=== PATIENT | female | born 1970 | race Caucasian/White ===

== ENCOUNTER 2017-08-15 09:59 | Emergency (ER) | payer OTHER ==
[~2017-08-15] VITALS: Ht 175.3 cm; Wt 113.4 kg
--- OUTSIDE RECORDS SUMMARY | ~2017-08-15 | XMS ---
Demographics + + + | Address | [address] | | | [place] [address] | + + + | Preferred Language | Unknown | + + + | Marital Status | Unknown | + + + | Orthodoxy Affiliation | Unknown | + + + | Race | Unknown | + + + | Ethnic Group | Unknown | + + + Author + + + | Author | [facility] | + + + | Organization | [facility] | + + + | Address | [address] | | | [place] [address] | + + + | Phone | | + + + Care Team Providers + + + + | Care Senior Interactive Developer Name | Role | Phone | + + + + Unavailable | Unavailable | + + + + PROBLEMS +---------+ + + +--------+ + + | Type | Condition | ICD9-CM | [id number] | Onset | Condition | SNOMED | | | | Code | Code | Dates | Status | Code | +---------+ + + +--------+ + + | Problem | Hypothyroi | | E03.9 | | Active | [id number] | | | dism | | | | | | +---------+ + + +--------+ + + | Problem | Cervicalgi | | M54.2 | | Active | 00097584 | | | a | | | | | | +---------+ + + +--------+ + + | Problem | History of | Z87.39 | | | Active | 015926857 | | | | | | | | | | | fibromyalg | | | | | | | | ia | | | | | | +---------+ + + +--------+ + + | Problem | 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 | | | Active | 945417429 | | | peroneal | | | | | | | | mononeurop | | | | | | | | athy | | | | | | +---------+ + + +--------+ + + | Problem | Anxiety | F41.8 | | | Active | 163622470 | | | associated | | | | | | | | with | | | | | | | | depression | | | | | | +---------+ + + +--------+ + + | Problem | Postural | 729.90 | | | Active | 29468904 | | | imbalance | | | | | | +---------+ + + +--------+ + + | Problem | Carpal | 354.0 | | | Active | 68535441 | | | tunnel | | | | | | | | syndrome | | | | | | +---------+ + + +--------+ + + | Problem | Impingemen | 726.2 | | | Active | 8738799933 | | | t syndrome | | | | | 9442321 | | | of both | | | | | | | | shoulders | | | | | | +---------+ + + +--------+ + + | Problem | Asthma | | J45.909 | | Active | 787700526 | +---------+ + + +--------+ + + | Problem | Alopecia | L65.9 | | | Active | 87832327 | +---------+ + + +--------+ + + | Problem | GERD | | K21.9 | | Active | 688771110 | | | (gastroeso | | | | | | | | phageal | | | | | | | | reflux | | | | | | | | disease) | | | | | | +---------+ + + +--------+ + + | Problem | Eustachian | H69.80 | | | Active | 14739649 | | | tube | | | | | | | | dysfunctio | | | | | | | | n | | | | | | +---------+ + + +--------+ + + | Problem | PTSD | | F43.10 | | Active | 34824413 | | | (post-trau | | | | | | | | matic | | | | | | | | stress | | | | | | | | disorder) | | | | | | +---------+ + + +--------+ + + | Problem | History of | Z98.890 | | | Active | 342215087 | | | Holter | | | | | | | | monitoring | | | | | | +---------+ + + +--------+ + + | Problem | H/O | Z98.890 | | | Active | 427324240 | | | cervical | | | | | | | | spine | | | | | | | | surgery | | | | | | +---------+ + + +--------+ + + | 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 | 17843754 | | | anomaly | | | | | | +---------+ + + +--------+ + + | Problem | Yuko | B37.9 | | | Active | 87054445 | | | albicans | | | | | | | | infection | | | | | | +---------+ + + +--------+ + + | Problem | Dental | S09.93XA | | | Active | 62278803 | | | injury | | | | | | +---------+ + + +--------+ + + | Problem | Displaceme | M51.27 | | | Active | 88932339 | | | nt of | | | | | | | | lumbosacra | | | | | | | | l | | | | | | | | interverte | | | | | | | | bral disc | | | | | | +---------+ + + +--------+ + + | Problem | History of | Z87.828 | | | Active | | | | multiple | | | | | | | | trauma | | | | | | +---------+ + + +--------+ + + | Problem | Sprain of | S93.419A | | | Active | 68687544 | | | calcaneofi | | | | | | | | bular | | | | | | | | ligament | | | | | | | | of ankle | | | | | | +---------+ + + +--------+ + + | Problem | Personal | | Z87.898 | | Active | 014655913 | | | history of | | | | | | | | other | | | | | | | | specified | | | | | | | | conditions | | | | | | +---------+ + + +--------+ + + | Problem | Syncope | R55 | | | Active | 209837307 | +---------+ + + +--------+ + + | Problem | Nasal | | R09.81 | | Active | 83616157 | | | congestion | | | | | | +---------+ + + +--------+ + + | Problem | Other | | J30.2 | | Active | 282463320 | | | seasonal | | | | | | | | allergic | | | | | | | | rhinitis | | | | | | +---------+ + + +--------+ + + | 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 | | | Active | 988934781 | | | athy, | | | | | | | | peripheral | | | | | | | | | | | | | | | | sensorimot | | | | | | | | or axonal | | | | | | +---------+ + + +--------+ + + | Problem | Lumbosacra | M54.17 | | | Active | 0421360 | | | l | | | | | | | | radiculopa | | | | | | | | thy due to | | | | | | | | trauma | | | | | | +---------+ + + +--------+ + + | Problem | Spondylosi | M47.816 | | | Active | 88613130 | | | s of | | | | | | | | lumbar | | | | | | | | joint | | | | | | +---------+ + + +--------+ + + | Problem | Rheumatoid | M06.079 | | | Active | 60412785 | | | arthritis | | | | | | | | involving | | | | | | | | ankle | | | | | | +---------+ + + +--------+ + + | Problem | Medication | T88.7XXA | | | Active | | | | reaction | | | | | | +---------+ + + +--------+ + + | Problem | Other | | M47.12 | | Active | 91376236 | | | spondylosi | | | | | | | | s with | | | | | | | | myelopathy | | | | | | | | , cervical | | | | | | | | region | | | | | | +---------+ + + +--------+ + + | Problem | Postural | R29.3 | | | Active | 87213589 | | | imbalance | | | | | | +---------+ + + +--------+ + + | Problem | Tear of | M75.101 | | | Active | 3800379653 | | | right | | | | | 4714652 | | | rotator | | | | | | | | cuff, | | | | | | | | unspecifie | | | | | | | | d tear | | | | | | | | extent | | | | | | +---------+ + + +--------+ + + ALLERGIES Unknown Allergies SOCIAL HISTORY No smoking Hx information available PLAN OF CARE VITAL SIGNS MEDICATIONS Unknown Medications RESULTS No Results PROCEDURES No Known procedures IMMUNIZATIONS No Known Immunizations"
--- OUTSIDE RECORDS SUMMARY | ~2017-08-15 | XMS ---
Demographics + + + | Address | [address] | | | [place] [address] | + + + | Preferred Language | Unknown | + + + | Marital Status | Unknown | + + + | Quaker Affiliation | Unknown | + + + | Race | Unknown | + + + | Ethnic Group | Unknown | + + + Author + + + | Author | [facility] | + + + | Organization | [facility] | + + + | Address | [address] | | | [place] [address] | + + + | Phone | | + + + Care Team Providers + + + + | Care Design Assistant Name | Role | Phone | + + + + Unavailable | Unavailable | + + + + PROBLEMS +---------+ + + +--------+ + + | Type | Condition | ICD9-CM | [id number] | Onset | Condition | SNOMED | | | | Code | Code | Dates | Status | Code | +---------+ + + +--------+ + + | Problem | Cervicalgi | | M54.2 | | Active | 61944810 | | | a | | | | | | +---------+ + + +--------+ + + | Problem | Hypothyroi | | E03.9 | | Active | 09131870 | | | dism | | | | | | +---------+ + + +--------+ + + | Problem | 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 | | | Active | 816488066 | | | peroneal | | | | | | | | mononeurop | | | | | | | | athy | | | | | | +---------+ + + +--------+ + + | Problem | History of | Z87.39 | | | Active | 013510553 | | | | | | | | | | | fibromyalg | | | | | | | | ia | | | | | | +---------+ + + +--------+ + + | Problem | Anxiety | F41.8 | | | Active | 015173327 | | | associated | | | | | | | | with | | | | | | | | depression | | | | | | +---------+ + + +--------+ + + | Problem | Postural | R29.3 | | | Active | 70763743 | | | imbalance | | | | | | +---------+ + + +--------+ + + | Problem | Postural | 729.90 | | | Active | 56586592 | | | imbalance | | | | | | +---------+ + + +--------+ + + | Problem | Tear of | M75.101 | | | Active | 6552325311 | | | right | | | | | 8452453 | | | rotator | | | [...] | 354.0 | | | Active | 67404241 | | | tunnel | | | [...] | Z98.890 | | | Active | 532139791 | | | Holter | | | | | | | | monitoring | | | | | | +---------+ + + +--------+ + + | Problem | Other | | M47.12 | | Active | 13688075 | | | spondylosi | | | [...] | | R09.81 | | Active | 89653271 | | | congestion | | | | | | +---------+ + + +--------+ + + | Problem | Other | | J30.2 | | Active | 943916063 | | | seasonal | | | | | | | | allergic | | | | | | | | rhinitis | | | | | | +---------+ + + +--------+ + + | Problem | GERD | | K21.9 | | Active | 437023128 | | | (gastroeso | | | | | | | | phageal | | | | | | | | reflux | | | | | | | | disease) | | | | | | +---------+ + + +--------+ + + | Problem | Asthma | | J45.909 | | Active | 673855275 | +---------+ + + +--------+ + + | Problem | Impingemen | 726.2 | | | Active | 4443391134 | | | t syndrome | | | | | 6816843 | | | of both | | | | | | | | shoulders | | | | | | +---------+ + + +--------+ + + | Problem | H/O | Z98.890 | | | Active | 687470533 | | | cervical | | | | | | | | spine | | | | | | | | surgery | | | | | | +---------+ + + +--------+ + + | 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 | 11061856 | | | anomaly | | | | | | +---------+ + + +--------+ + + | Problem | Personal | | Z87.898 | | Active | 708491047 | | | history of | | | | | | | | other | | | | | | | | specified | | | | | | | | conditions | | | | | | +---------+ + + +--------+ + + | Problem | Syncope | R55 | | | Active | 128234142 | +---------+ + + +--------+ + + | Problem | History of | Z87.828 | | | Active | | | | multiple | | | | | | | | trauma | | | | | | +---------+ + + +--------+ + + | Problem | Displaceme | M51.27 | | | Active | 16655985 | | | nt of | | [...] | | F43.10 | | Active | 87718817 | | | (post-trau | | | | | | | | matic | | | | | | | | stress | | | | | | | | disorder) | | | | | | +---------+ + + +--------+ + + | Problem | Sprain of | S93.419A | | | Active | 37584548 | | | calcaneofi | | | | | | | | bular | | | | | | | | ligament | | | | | | | | of ankle | | | | | | +---------+ + + +--------+ + + | 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 | | | Active | 483537595 | | | athy, | | | | | | | | peripheral | | | | | | | | | | | | | | | | sensorimot | | | | | | | | or axonal | | | | | | +---------+ + + +--------+ + + | Problem | Lumbosacra | M54.17 | | | Active | 9221539 | | | l | | | | | | | | radiculopa | | | | | | | | thy due to | | | | | | | | trauma | | | | | | +---------+ + + +--------+ + + | Problem | Spondylosi | M47.816 | | | Active | 73619198 | | | s of | | | | | | | | lumbar | | | | | | | | joint | | | | | | +---------+ + + +--------+ + + | Problem | Rheumatoid | M06.079 | | | Active | 85982778 | | | arthritis | | | | | | | | involving | | | | | | | | ankle | | | | | | +---------+ + + +--------+ + + ALLERGIES + + + + +--------+ | Substance | Reaction | Event Type | Date | Status | + + + + +--------+ | Tylox | anaphylaxis | Drug Allergy | Apr, | Active | + + + + +--------+ | Tramadol HCl | anaphylaxis | Drug Allergy | Apr, | Active | + + + + +--------+ | Percocet | anaphylaxis | Drug Allergy | Apr, | Active | + + + + +--------+ | OxyContin | anaphylaxis | Drug Allergy | Apr, | Active | + + + + +--------+ | Oxycodone-Aceta | anaphylaxis | Drug Allergy | Apr, | Active | | minophen | | | | | + + + + +--------+ | Morphine | anaphylaxis | Drug Allergy | Apr, | Active | | Sulfate | | | | | + + + + +--------+ | Lortab | anaphylaxis | Drug Allergy | Apr, | Active | + + + + +--------+ | Codeine | anaphylaxis | Drug Allergy | Apr, | Active | + + + + +--------+ | Hydrocodone-Brannon | anaphylaxis | Drug Allergy | Apr, | Active | | taminophen | | | | | + + + + +--------+ | Vicodin | anaphylaxis | Drug Allergy | Apr, | Active | + + + + +--------+ | Guaifenesin | Unknown | Drug Allergy | Apr, | Active | + + + + +--------+ | Darvocet-N 50 | anaphylaxis | Drug Allergy | Apr, | Active | + + + + +--------+ | Augmentin | shortness of | Drug Allergy | Apr, | Active | | | breath | | | | + + + + +--------+ SOCIAL HISTORY No smoking Hx information available PLAN OF CARE + +---------+ | Activity | Details | + +---------+ +---+ | | +---+ + + + | Follow Up | prn after specialty visits Reason:null | + + + VITAL SIGNS + + + + | Height | 69 in | 2017-04-24 | + + + + | Weight | 249.8 lbs | 2017-04-24 | + + + + | BMI | 36.88 kg/m2 | 2017-04-24 | + + + + | Temperature | 97.8 degrees Fahrenheit | 2017-04-24 | + + + + | Heart Rate | 85 /min | 2017-04-24 | + + + + | Blood pressure systolic | 123 mm Hg | 2017-04-24 | + + + + | Blood pressure diastolic | 76 mm Hg | 2017-04-24 | + + + + MEDICATIONS + + + + + + + +--------+ | Medicati | Instruct | Dosage | Frequenc | Start | End Date | Duration | Status | | on | ions | | y | Date | | | | + + + + + + + +--------+ | Metaxalo | Orally | 1 tablet | 8h | | | | Active | | ne 800 | Three | | | | | | | | MG | times a | | | | | | | | | day | | | | | | | + + + + + + + +--------+ | Duloxeti | Orally | 1 | 12h | | | | Active | | ne HCl | Twice a | capsule | | | | | | | 30 MG | day | | | | | | | + + + + + + + +--------+ | Tylenol | | 2tabs | 8h | | | | Active | | 500 mg | | | | | | | | + + + + + + + +--------+ | ibuprofe | | 1 | | | | | Active | | n 800mg | | | | | | | | + + + + + + + +--------+ | Ciproflo | Orally | 1 tab | 12h | | | | Active | | xacin | Twice a | | | | | | | | 500mg | day | | | | | | | + + + + + + + +--------+ | Methocar | Orally | 1 to 2 | 6h | | | | Active | | bamol | every 6 | tablets | | | | | | | 750 MG | hours | | | | | | | + + + + + + + +--------+ | BuPROPio | Orally | 1 tablet | | 15 Aug, | | | Active | | n HCl ER | prn | | | 2016 | | | | | (SR) | | | | | | | | | 150 MG | | | | | | | | + + + + + + + +--------+ | Levothyr | Orally | 1 tablet | 24h | | | 90 days | Active | | oxine | Once a | | | | | | | | Sodium | day | | | | | | | | 25 MCG | | | | | | | | + + + + + + + +--------+ | EpiPen | Injectio | as | | 11 Apr, | | 1 | Active | | 2-Raul | n as | directed | | 2016 | | dose(s) | | | 0.3 | directed | | | | | | | | MG/0.3ML | | | | | | | | + + + + + + + +--------+ | Ventolin | Inhalati | 1 puffs | 4h | 29 Guicho, | | 1 month | Active | | HFA 108 | on every | as | | 2016 | | | | | (90 | 4 hrs | needed | | | | | | | Base) | | | | | | | | | MCG/ACT | | | | | | | | + + + + + + + +--------+ | Ranitidi | orally | 1 tab | 12h | 20 Guicho, | | 30 | Active | | ne 150mg | twice a | | | 2016 | | | | | | day | | | | | | | + + + + + + + +--------+ | Fish Oil | | | | | | | Active | + + + + + + + +--------+ | Xopenex | Inhalati | 2 puffs | 6h | | | 30 | Active | | HFA 45 | on every | | | | | day(s) | | | MCG/ACT | 6 hrs | | | | | | | + + + + + + + +--------+ RESULTS No Results PROCEDURES + + + + + | Procedure | Date Ordered | Related Diagnosis | Body Site | + + + + + | Est Level IV | Apr 24, 2017 | | | | Extended | | | | + + + + + IMMUNIZATIONS No Known Immunizations"
--- OUTSIDE RECORDS SUMMARY | ~2017-08-15 | XMS ---
Demographics + + + | Address | [address] | | | [place] [address] | + + + | Preferred Language | Unknown | + + + | Marital Status | Unknown | + + + | Gnosticist Affiliation | Unknown | + + + | Race | Unknown | + + + | Ethnic Group | Unknown | + + + Author + + + | Author | [facility] | + + + | Organization | [facility] | + + + | Address | [address] | | | [place] [address] | + + + | Phone | | + + + Care Team Providers + + + + | Care Nursing Scheduler Name | Role | Phone | + + + + Unavailable | Unavailable | + + + + PROBLEMS +---------+ + + +--------+ + + | Type | Condition | ICD9-CM | [id number] | Onset | Condition | SNOMED | | | | Code | Code | Dates | Status | Code | +---------+ + + +--------+ + + | Problem | Cervicalgi | | M54.2 | | Active | 70845664 | | | a | | | | | | +---------+ + + +--------+ + + | Problem | Hypothyroi | | E03.9 | | Active | 18013539 | | | dism | | | | | | +---------+ + + +--------+ + + | Problem | 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 | | | Active | 239492630 | | | peroneal | | | | | | | | mononeurop | | | | | | | | athy | | | | | | +---------+ + + +--------+ + + | Problem | History of | Z87.39 | | | Active | 661179358 | | | | | | | | | | | fibromyalg | | | | | | | | ia | | | | | | +---------+ + + +--------+ + + | Problem | Anxiety | F41.8 | | | Active | 350355144 | | | associated | | | | | | | | with | | | | | | | | depression | | | | | | +---------+ + + +--------+ + + | Problem | Postural | R29.3 | | | Active | 66673525 | | | imbalance | | | | | | +---------+ + + +--------+ + + | Problem | Postural | 729.90 | | | Active | 02103939 | | | imbalance | | | | | | +---------+ + + +--------+ + + | Problem | Tear of | M75.101 | | | Active | [id number] | | | right | | | | | 2156613 | | | rotator | | | [...] | 354.0 | | | Active | 87301904 | | | tunnel | | | [...] | Z98.890 | | | Active | 923237211 | | | Holter | | | | | | | | monitoring | | | | | | +---------+ + + +--------+ + + | Problem | Other | | M47.12 | | Active | 72888588 | | | spondylosi | | | [...] | | R09.81 | | Active | 59366305 | | | congestion | | | | | | +---------+ + + +--------+ + + | Problem | Other | | J30.2 | | Active | 686005190 | | | seasonal | | | | | | | | allergic | | | | | | | | rhinitis | | | | | | +---------+ + + +--------+ + + | Problem | GERD | | K21.9 | | Active | 674433650 | | | (gastroeso | | | | | | | | phageal | | | | | | | | reflux | | | | | | | | disease) | | | | | | +---------+ + + +--------+ + + | Problem | Asthma | | J45.909 | | Active | 241016839 | +---------+ + + +--------+ + + | Problem | Impingemen | 726.2 | | | Active | 1578891364 | | | t syndrome | | | | | 2551056 | | | of both | | | | | | | | shoulders | | | | | | +---------+ + + +--------+ + + | Problem | H/O | Z98.890 | | | Active | 356996013 | | | cervical | | | | | | | | spine | | | | | | | | surgery | | | | | | +---------+ + + +--------+ + + | 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 | 51798904 | | | anomaly | | | | | | +---------+ + + +--------+ + + | Problem | Personal | | Z87.898 | | Active | 518125675 | | | history of | | | | | | | | other | | | | | | | | specified | | | | | | | | conditions | | | | | | +---------+ + + +--------+ + + | Problem | Syncope | R55 | | | Active | 938384461 | +---------+ + + +--------+ + + | Problem | History of | Z87.828 | | | Active | | | | multiple | | | | | | | | trauma | | | | | | +---------+ + + +--------+ + + | Problem | Displaceme | M51.27 | | | Active | 01983773 | | | nt of | | [...] | | F43.10 | | Active | 09412655 | | | (post-trau | | | | | | | | matic | | | | | | | | stress | | | | | | | | disorder) | | | | | | +---------+ + + +--------+ + + | Problem | Sprain of | S93.419A | | | Active | 81164705 | | | calcaneofi | | | | | | | | bular | | | | | | | | ligament | | | | | | | | of ankle | | | | | | +---------+ + + +--------+ + + | 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
--- OUTSIDE RECORDS SUMMARY | ~2017-08-15 | XMS ---
Demographics + + + | Address | [address] | | | [place] [address] | + + + | Preferred Language | Unknown | + + + | Marital Status | Unknown | + + + | Jewish Affiliation | Unknown | + + + | Race | Unknown | + + + | Ethnic Group | Unknown | + + + Author + + + | Author | [facility] | + + + | Organization | [facility] | + + + | Address | [address] | | | [place] [address] | + + + | Phone | | + + + Care Team Providers + + + + | Care Kiln Labourer Name | Role | Phone | + + + + Unavailable | Unavailable | + + + + PROBLEMS +---------+ + + +--------+ + + | Type | Condition | ICD9-CM | [id number] | Onset | Condition | SNOMED | | | | Code | Code | Dates | Status | Code | +---------+ + + +--------+ + + | Problem | Cervicalgi | | M54.2 | | Active | 15678515 | | | a | | | | | | +---------+ + + +--------+ + + | Problem | 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 | | | Active | 354041158 | | | peroneal | | | | | | | | mononeurop | | | | | | | | athy | | | | | | +---------+ + + +--------+ + + | Problem | Hypothyroi | | E03.9 | | Active | 48503162 | | | dism | | | | | | +---------+ + + +--------+ + + | Problem | History of | Z87.39 | | | Active | 332548293 | | | | | | | | | | | fibromyalg | | | | | | | | ia | | | | | | +---------+ + + +--------+ + + | Problem | Anxiety | F41.8 | | | Active | 656227808 | | | associated | | | | | | | | with | | | | | | | | depression | | | | | | +---------+ + + +--------+ + + | Problem | Postural | 729.90 | | | Active | 92032181 | | | imbalance | | | | | | +---------+ + + +--------+ + + | Problem | Carpal | 354.0 | | | Active | 93634936 | | | tunnel | | | | | | | | syndrome | | | | | | +---------+ + + +--------+ + + | Problem | Impingemen | 726.2 | | | Active | [id number] | | | t syndrome | | | | | 8753998 | | | of both | | | | | | | | shoulders | | | | | | +---------+ + + +--------+ + + | Problem | Other | | M47.12 | | Active | 43134520 | | | spondylosi | | | [...] | | J45.909 | | Active | 989337172 | +---------+ + + +--------+ + + | Problem | Alopecia | L65.9 | | | Active | 30442514 | +---------+ + + +--------+ + + | Problem | GERD | | K21.9 | | Active | 251903236 | | | (gastroeso | | | | | | | | phageal | | | | | | | | reflux | | | | | | | | disease) | | | | | | +---------+ + + +--------+ + + | Problem | Eustachian | H69.80 | | | Active | 97269196 | | | tube | | | | | | | | dysfunctio | | | | | | | | n | | | | | | +---------+ + + +--------+ + + | 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 | 51699356 | | | anomaly | | | | | | +---------+ + + +--------+ + + | Problem | History of | Z98.890 | | | Active | 808204061 | | | Holter | | | | | | | | monitoring | | | | | | +---------+ + + +--------+ + + | Problem | Yuko | B37.9 | | | Active | 15312197 | | | albicans | | | | | | | | infection | | | | | | +---------+ + + +--------+ + + | Problem | Nasal | | R09.81 | | Active | 60260264 | | | congestion | | | [...] | S93.419A | | | Active | 51779484 | | | calcaneofi | | | | | | | | bular | | | | | | | | ligament | | | | | | | | of ankle | | | | | | +---------+ + + +--------+ + + | Problem | PTSD | | F43.10 | | Active | 80407989 | | | (post-trau | | | | | | | | matic | | | | | | | | stress | | | | | | | | disorder) | | | | | | +---------+ + + +--------+ + + | Problem | Syncope | R55 | | | Active | 770037364 | +---------+ + + +--------+ + + | Problem | H/O | Z98.890 | | | Active | 784080898 | | | cervical | | | | | | | | spine | | | | | | | | surgery | | | | | | +---------+ + + +--------+ + + | Problem | Other | | J30.2 | | Active | 681140140 | | | seasonal | | | | | | | | allergic | | | | | | | | rhinitis | | | | | | +---------+ + + +--------+ + + | Problem | Personal | | Z87.898 | | Active | 527840217 | | | history of | | | | | | | | other | | | | | | | | specified | | | | | | | | conditions | | | | | | +---------+ + + +--------+ + + | Problem | Rheumatoid | M06.079 | | | Active | 82415521 | | | arthritis | | | | | | | | involving | | | | | | | | ankle | | | | | | +---------+ + + +--------+ + + | 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 | | | Active | 862874718 | | | athy, | | | | | | | | peripheral | | | | | | | | | | | | | | | | sensorimot | | | | | | | | or axonal | | | | | | +---------+ + + +--------+ + + | Problem | Displaceme | M51.27 | | | Active | 60981750 | | | nt of | | [...] | M47.816 | | | Active | 03087136 | | | s of | | | | | | | | lumbar | | | | | | | | joint | | | | | | +---------+ + + +--------+ + + | Problem | Tear of | M75.101 | | | Active | 1702250902 | | | right | | | | | 1433584 | | | rotator | | | [...] | M54.17 | | | Active | 2437901 | | | l | | | | | | | | radiculopa | | | | | | | | thy due to | | | | | | | | trauma | | | | | | +---------+ + + +--------+ + + | Problem | Postural | R29.3 | | | Active | 50825776 | | | imbalance | | | [...] + + | Follow Up | prn Reason:null | + + + VITAL SIGNS + + + + | Height | 69 in | 2017 | + + + + | Weight | 250.0 lbs | 2017 | + + + + | BMI | 36.91 kg/m2 | 2017 | + + + + | Temperature | 96.3 degrees Fahrenheit | 2017 | + + + + | Heart Rate | 99 /min | 2017 | + + + + | Blood pressure systolic | 132 mm Hg | 2017 | + + + + | Blood pressure diastolic | 73 mm Hg | 2017 | + + + + MEDICATIONS + [...] + + + + + +--------+ | Diflucan | Orally | 1 tablet | | | | 1 | Active | | 150 MG | as | | | | | dose(s) | | | | directed | | | | | [...] + + + + + +--------+ | Vitamin | | | | | | | Active | | B 12 | | | | | | | | + + + + + + + +--------+ RESULTS No Results PROCEDURES + + + + + | Procedure | Date Ordered | Related Diagnosis | Body Site | + + + + + | Est Level III | 2017 | | | | Intermediate | | | | + + + + + IMMUNIZATIONS No Known Immunizations"
--- OUTSIDE RECORDS SUMMARY | ~2017-08-15 | XMS ---
Demographics + + + | Address | [address] | | | [place] [address] | + + + | Preferred Language | Unknown | + + + | Marital Status | Unknown | + + + | Mandaeism Affiliation | Unknown | + + + | Race | Unknown | + + + | Ethnic Group | Unknown | + + + Author + + + | Author | [facility] | + + + | Organization | [facility] | + + + | Address | [address] | | | [place] [address] | + + + | Phone | | + + + Care Team Providers + + + + | Care Cnc Grinder Name | Role | Phone | + + + + Unavailable | Unavailable | + + + + PROBLEMS +---------+ + + +--------+ + + | Type | Condition | ICD9-CM | VDU65-CE | Onset | Condition | SNOMED | | | | Code | Code | Dates | Status | Code | +---------+ + + +--------+ + + | Problem | Hypothyroi | | E03.9 | | Active | 87393174 | | | dism | | | | | | +---------+ + + +--------+ + + | Problem | Cervicalgi | | M54.2 | | Active | 19733647 | | | a | | | | | | +---------+ + + +--------+ + + | Problem | 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 | | | Active | 904620865 | | | peroneal | | | | | | | | mononeurop | | | | | | | | athy | | | | | | +---------+ + + +--------+ + + | Problem | History of | Z87.39 | | | Active | 487384103 | | | | | | | | | | | fibromyalg | | | | | | | | ia | | | | | | +---------+ + + +--------+ + + | Problem | Anxiety | F41.8 | | | Active | 966822801 | | | associated | | | | | | | | with | | | | | | | | depression | | | | | | +---------+ + + +--------+ + + | Problem | Postural | 729.90 | | | Active | 23339120 | | | imbalance | | | | | | +---------+ + + +--------+ + + | Problem | Carpal | 354.0 | | | Active | 06892501 | | | tunnel | | | | | | | | syndrome | | | | | | +---------+ + + +--------+ + + | Problem | Medication | T88.7XXA | | | Active | | | | reaction | | | | | | +---------+ + + +--------+ + + | Problem | Impingemen | 726.2 | | | Active | 0871843145 | | | t syndrome | | | | | 5233248 | | | of both | | | | | | | | shoulders | | | | | | +---------+ + + +--------+ + + | Problem | Other | | M47.12 | | Active | 16333877 | | | spondylosi | | | [...] | | J45.909 | | Active | 104952976 | +---------+ + + +--------+ + + | Problem | Alopecia | L65.9 | | | Active | 11075010 | +---------+ + + +--------+ + + | Problem | History of | Z98.890 | | | Active | 610306987 | | | Holter | | | | | | | | monitoring | | | | | | +---------+ + + +--------+ + + | Problem | Eustachian | H69.80 | | | Active | 66401698 | | | tube | | | | | | | | dysfunctio | | | | | | | | n | | | | | | +---------+ + + +--------+ + + | Problem | Nasal | | R09.81 | | Active | 32600300 | | | congestion | | | | | | +---------+ + + +--------+ + + | Problem | Other | | J30.2 | | Active | 480489619 | | | seasonal | | | | | | | | allergic | | | | | | | | rhinitis | | | | | | +---------+ + + +--------+ + + | Problem | Sprain of | S93.419A | | | Active | 71030650 | | | calcaneofi | | | | | | | | bular | | | | | | | | ligament | | | | | | | | of ankle | | | | | | +---------+ + + +--------+ + + | Problem | PTSD | | F43.10 | | Active | 52633464 | | | (post-trau | | | | | | | | matic | | | | | | | | stress | | | | | | | | disorder) | | | | | | +---------+ + + +--------+ + + | Problem | GERD | | K21.9 | | Active | 681412868 | | | (gastroeso | | | | | | | | phageal | | | | | | | | reflux | | | | | | | | disease) | | | | | | +---------+ + + +--------+ + + | Problem | H/O | Z98.890 | | | Active | 209208290 | | | cervical | | | | | | | | spine | | | | | | | | surgery | | | | | | +---------+ + + +--------+ + + | 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 | 54026778 | | | anomaly | | | | | | +---------+ + + +--------+ + + | Problem | Personal | | Z87.898 | | Active | 473104521 | | | history of | | | | | | | | other | | | | | | | | specified | | | | | | | | conditions | | | | | | +---------+ + + +--------+ + + | Problem | Syncope | R55 | | | Active | 675605237 | +---------+ + + +--------+ + + | Problem | Spondylosi | M47.816 | | | Active | 13875804 | | | s of | | | | | | | | lumbar | | | | | | | | joint | | | | | | +---------+ + + +--------+ + + | Problem | Rheumatoid | M06.079 | | | Active | 24821001 | | | arthritis | | | [...] | M51.27 | | | Active | 53719320 | | | nt of | | [...] | R29.3 | | | Active | 24078323 | | | imbalance | | | | | | +---------+ + + +--------+ + + | Problem | Tear of | M75.101 | | | Active | 4847923966 | | | right | | | | | 9131003 | | | rotator | | | [...] | G60.8 | | | Active | 830407873 | | | athy, | | | | | | | | peripheral | | | | | | | | | | | | | | | | sensorimot | | | | | | | | or axonal | | | | | | +---------+ + + +--------+ + + | Problem | Lumbosacra | M54.17 | | | Active | 4885425 | | | l | | | [...] information available PLAN OF CARE VITAL SIGNS + + + + | Height | 69 in | 2017-05-01 | + + + + | Weight | 255.0 lbs | 2017-05-01 | + + + + | BMI | 37.65 kg/m2 | 2017-05-01 | + + + + | Temperature | 98.0 degrees Fahrenheit | 2017-05-01 | + + + + | Heart Rate | 79 /min | 2017-05-01 | + + + + | Blood pressure systolic | 118 mm Hg | 2017-05-01 | + + + + | Blood pressure diastolic | 76 mm Hg | 2017-05-01 | + + + + MEDICATIONS + [...] | n as | directed | | 2017 | | dose(s) | | | 0.3 [...] Inhalati | 1 puffs | 4h | Feb, | | 1 month | Active | [...] + + | Est Level III | May 01, 2017 | | | | Intermediate | | | | + + + + + IMMUNIZATIONS No Known Immunizations"
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
--- OUTSIDE RECORDS SUMMARY | ~2017-08-15 | XMS ---
Demographics + + + | Address | [address] | | | [place] [address] | + + + | Preferred Language | Unknown | + + + | Marital Status | Unknown | + + + | Mormon Affiliation | Unknown | + + + | Race | Unknown | + + + | Ethnic Group | Unknown | + + + Author + + + | Author | [facility] | + + + | Organization | [facility] | + + + | Address | [address] | | | [place] [address] | + + + | Phone | | + + + Care Team Providers + + + + | Care Outpatient Scheduler Name | Role | Phone | + + + + Unavailable | Unavailable | + + + + PROBLEMS +---------+ + + +--------+ + + | Type | Condition | ICD9-CM | [id number] | Onset | Condition | SNOMED | | | | Code | Code | Dates | Status | Code | +---------+ + + +--------+ + + | Problem | Cervicalgi | | M54.2 | | Active | [id number] | | | a | | | | | | +---------+ + + +--------+ + + | Problem | Hypothyroi | | E03.9 | | Active | 02185408 | | | dism | | | | | | +---------+ + + +--------+ + + | Problem | 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 | | | Active | 106636738 | | | peroneal | | | | | | | | mononeurop | | | | | | | | athy | | | | | | +---------+ + + +--------+ + + | Problem | History of | Z87.39 | | | Active | 265346780 | | | | | | | | | | | fibromyalg | | | | | | | | ia | | | | | | +---------+ + + +--------+ + + | Problem | Anxiety | F41.8 | | | Active | 320501274 | | | associated | | | | | | | | with | | | | | | | | depression | | | | | | +---------+ + + +--------+ + + | Problem | Postural | 729.90 | | | Active | 21202839 | | | imbalance | | | | | | +---------+ + + +--------+ + + | Problem | Pain in | | M25.532 | | Active | 45593239 | | | left wrist | | | | | | +---------+ + + +--------+ + + | Problem | Carpal | 354.0 | | | Active | 62472185 | | | tunnel | | | | | | | | syndrome | | | | | | +---------+ + + +--------+ + + | Problem | Pain in | | M25.531 | | Active | 04255259 | | | right | | | | | | | | wrist | | | | | | +---------+ + + +--------+ + + | Problem | Cervical | 720.89 | | | Active | | | | spondyliti | | | | | | | | s with | | | | | | | | radiculiti | | | | | | | | s | | | | | | +---------+ + + +--------+ + + | Problem | Weight | | R63.5 | | Active | 5735081 | | | gain | | | | | | +---------+ + + +--------+ + + | Problem | Fungal | B36.9 | | | Active | 97495293 | | | rash of | | | | | | | | torso | | | | | | +---------+ + + +--------+ + + | Problem | Postural | R29.3 | | | Active | 03490291 | | | imbalance | | | | | | +---------+ + + +--------+ + + | Problem | Otitis | H60.90 | | | Active | 7465917 | | | externa | | | | | | +---------+ + + +--------+ + + | Problem | Homeless | Z59.0 | | | Active | 02943498 | +---------+ + + +--------+ + + | Problem | GERD | | K21.9 | | Active | 676681517 | | | (gastroeso | | | | | | | | phageal | | | | | | | | reflux | | | | | | | | disease) | | | | | | +---------+ + + +--------+ + + | Problem | Asthma | | J45.909 | | Active | 743455656 | +---------+ + + +--------+ + + | Problem | Impingemen | 726.2 | | | Active | 1278674700 | | | t syndrome | | | | | 9722116 | | | of both | | | | | | | | shoulders | | | | | | +---------+ + + +--------+ + + | Problem | Encounter | | Z76.0 | | Active | | | | for | | | | | | | | medication | | | | | | | | refill | | | | | | +---------+ + + +--------+ + + | Problem | Tear of | M75.101 | | | Active | [id number] | | | right | | | | | 7492588 | | | rotator | | | [...] + + | Problem | Dental | K04.7 | | | Active | 281463773 | | | abscess | | | | | | +---------+ + + +--------+ + + | Problem | History of | Z87.828 | | | Active | | | | multiple | | | | | | | | trauma | | | | | | +---------+ + + +--------+ + + | Problem | Displaceme | M51.27 | | | Active | 51632027 | | | nt of | | [...] | | F43.10 | | Active | 39198853 | | | (post-trau | | | | | | | | matic | | | | | | | | stress | | | | | | | | disorder) | | | | | | +---------+ + + +--------+ + + | Problem | Sprain of | S93.419A | | | Active | 76173926 | | | calcaneofi | | | | | | | | bular | | | | | | | | ligament | | | | | | | | of ankle | | | | | | +---------+ + + +--------+ + + | 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 | | | Active | 910477671 | | | athy, | | | | | | | | peripheral | | | | | | | | | | | | | | | | sensorimot | | | | | | | | or axonal | | | | | | +---------+ + + +--------+ + + | Problem | Lumbosacra | M54.17 | | | Active | 8015189 | | | l | | | | | | | | radiculopa | | | | | | | | thy due to | | | | | | | | trauma | | | | | | +---------+ + + +--------+ + + | Problem | Spondylosi | M47.816 | | | Active | 97864976 | | | s of | | | | | | | | lumbar | | | | | | | | joint | | | | | | +---------+ + + +--------+ + + | Problem | Rheumatoid | M06.079 | | | Active | 00008118 | | | arthritis | | | | | | | | involving | | | | | | | | ankle | | | | | | +---------+ + + +--------+ + + ALLERGIES Unknown Allergies SOCIAL HISTORY No smoking Hx information available PLAN OF CARE VITAL SIGNS MEDICATIONS + + + + + + [...] | on every | as | | 2017 | | | | | (90 | 4 hrs | needed | | | | | | | Base) | | | | | | | | | MCG/ACT | | | | | | | | + + + + + + + +--------+ RESULTS No Results PROCEDURES No Known procedures IMMUNIZATIONS No Known Immunizations"
--- OUTSIDE RECORDS SUMMARY | ~2017-08-15 | XMS ---
Demographics + + + | Address | [address] | | | [place] [address] | + + + | Preferred Language | Unknown | + + + | Marital Status | Unknown | + + + | Protestant Affiliation | Unknown | + + + | Race | Unknown | + + + | Ethnic Group | Unknown | + + + Author + + + | Author | [facility] | + + + | Organization | [facility] | + + + | Address | [address] | | | [place] [address] | + + + | Phone | [phone] [phone] | + + + Care Team Providers + + + + | Care Toeing Stockings Name | Role | Phone | + + + + Unavailable | Unavailable | + + + + PROBLEMS +---------+ + + +--------+ + + | Type | Condition | ICD9-CM | [id number] | Onset | Condition | SNOMED | | | | Code | Code | Dates | Status | Code | +---------+ + + +--------+ + + | Problem | Hypothyroi | | E03.9 | | Active | 20577147 | | | dism | | | | | | +---------+ + + +--------+ + + | Problem | Cervicalgi | | M54.2 | | Active | 47177787 | | | a | | | | | | +---------+ + + +--------+ + + | Problem | History of | Z87.39 | | | Active | 877691118 | | | | | | | | | | | fibromyalg | | | | | | | | ia | | | | | | +---------+ + + +--------+ + + | Problem | 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 | | | Active | 282935590 | | | peroneal | | | | | | | | mononeurop | | | | | | | | athy | | | | | | +---------+ + + +--------+ + + | Problem | Postural | 729.90 | | | Active | 94202337 | | | imbalance | | | | | | +---------+ + + +--------+ + + | Problem | Carpal | 354.0 | | | Active | 13481723 | | | tunnel | | | | | | | | syndrome | | | | | | +---------+ + + +--------+ + + | Problem | Impingemen | 726.2 | | | Active | 2171693521 | | | t syndrome | | | | | 4895135 | | | of both | | | | | | | | shoulders | | | | | | +---------+ + + +--------+ + + | Problem | Asthma | | J45.909 | | Active | 753785212 | +---------+ + + +--------+ + + | Problem | GERD | | K21.9 | | Active | 108605489 | | | (gastroeso | | | | | | | | phageal | | | | | | | | reflux | | | | | | | | disease) | | | | | | +---------+ + + +--------+ + + | Problem | H/O | Z98.890 | | | Active | 008381613 | | | cervical | | | | | | | | spine | | | | | | | | surgery | | | | | | +---------+ + + +--------+ + + | Problem | PTSD | | F43.10 | | Active | 43135485 | | | (post-trau | | | | | | | | matic | | | | | | | | stress | | | | | | | | disorder) | | | | | | +---------+ + + +--------+ + + | Problem | Syncope | R55 | | | Active | 685900825 | +---------+ + + +--------+ + + | Problem | Sprain of | S93.419A | | | Active | 57715119 | | | calcaneofi | | | | | | | | bular | | | | | | | | ligament | | | | | | | | of ankle | | | | | | +---------+ + + +--------+ + + | Problem | Personal | | Z87.898 | | Active | 869533135 | | | history of | | | | | | | | other | | | | | | | | specified | | | | | | | | conditions | | | | | | +---------+ + + +--------+ + + | Problem | Dental | S09.93XA | | | Active | 18706945 | | | injury | | | | | | +---------+ + + +--------+ + + | Problem | Other | | J30.2 | | Active | 266977333 | | | seasonal | | | | | | | | allergic | | | | | | | | rhinitis | | | | | | +---------+ + + +--------+ + + | Problem | Fatigue | | R53.83 | | Active | 90692934 | +---------+ + + +--------+ + + | Problem | Hyperglyce | | R73.9 | | Active | 53897573 | | | emerald | | | | | | +---------+ + + +--------+ + + | Problem | Spondylosi | M47.816 | | | Active | 79544574 | | | s of | | | | | | | | lumbar | | | | | | | | joint | | | | | | +---------+ + + +--------+ + + | Problem | Displaceme | M51.27 | | | Active | 47331478 | | | nt of | | [...] | L81.9 | | | Active | 02172080 | | | mole | | | | | | +---------+ + + +--------+ + + | 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 | | | | | | | | III) | | | | | | +---------+ + + +--------+ + + | Problem | Hypertensi | | I10 | | Active | 52657155 | | | on | | | | | | +---------+ + + +--------+ + + | Problem | Skin | L98.9 | | | Active | 53953033 | | | lesion | | | | | | +---------+ + + +--------+ + + | Problem | Lumbosacra | M54.17 | | | Active | 7070946 | | | l | | | | | | | | radiculopa | | | | | | | | thy due to | | | | | | | | trauma | | | | | | +---------+ + + +--------+ + + | Problem | Tear of | M75.101 | | | Active | 2538455240 | | | right | | | | | 7355738 | | | rotator | | | [...] | M06.079 | | | Active | 29794937 | | | arthritis | | | | | | | | involving | | | | | | | | ankle | | | | | | +---------+ + + +--------+ + + | 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 | | | Active | 474954374 | | | athy, | | | [...] | Z98.890 | | | Active | 782596325 | | | Holter | | | | | | | | monitoring | | | | | | +---------+ + + +--------+ + + | 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 | 30900935 | | | anomaly | | | | | | +---------+ + + +--------+ + + | Problem | Other | | M47.12 | | Active | 61274147 | | | spondylosi | | | [...] | H69.80 | | | Active | 55876212 | | | tube | | | [...]
--- OUTSIDE RECORDS SUMMARY | ~2017-08-15 | XMS ---
Demographics + + + | Address | [address] | | | [place] [address] | + + + | Preferred Language | Unknown | + + + | Marital Status | Unknown | + + + | Mu-Ism Affiliation | Unknown | + + + | Race | Unknown | + + + | Ethnic Group | Unknown | + + + Author + + + | Author | [facility] | + + + | Organization | [facility] | + + + | Address | [address] | | | [place] [address] | + + + | Phone | [phone] [phone] | + + + Care Team Providers + + + + | Care Roof Truss Builder Name | Role | Phone | + + + + Unavailable | Unavailable | + + + + PROBLEMS +---------+ + + +--------+ + + | Type | Condition | ICD9-CM | [id number] | Onset | Condition | SNOMED | | | | Code | Code | Dates | Status | Code | +---------+ + + +--------+ + + | Problem | Postural | 729.90 | | | Active | 61493827 | | | imbalance | | | | | | +---------+ + + +--------+ + + | Problem | History of | Z87.39 | | | Active | 167222622 | | | | | | | | | | | fibromyalg | | | | | | | | ia | | | | | | +---------+ + + +--------+ + + | Problem | Impingemen | 726.2 | | | Active | 1489470382 | | | t syndrome | | | | | 4778501 | | | of both | | | | | | | | shoulders | | | | | | +---------+ + + +--------+ + + | Problem | Carpal | 354.0 | | | Active | 67210955 | | | tunnel | | | | | | | | syndrome | | | | | | +---------+ + + +--------+ + + | Problem | Asthma | | J45.909 | | Active | 424484365 | +---------+ + + +--------+ + + | Problem | GERD | | K21.9 | | Active | 633257745 | | | (gastroeso | | | | | | | | phageal | | | | | | | | reflux | | | | | | | | disease) | | | | | | +---------+ + + +--------+ + + | Problem | PTSD | | F43.10 | | Active | 02934303 | | | (post-trau | | | | | | | | matic | | | | | | | | stress | | | | | | | | disorder) | | | | | | +---------+ + + +--------+ + + | Problem | Sprain of | S93.419A | | | Active | 00794087 | | | calcaneofi | | | [...] | | J30.2 | | Active | 743540983 | | | seasonal | | | | | | | | allergic | | | | | | | | rhinitis | | | | | | +---------+ + + +--------+ + + | Problem | Displaceme | M51.27 | | | Active | 85840692 | | | nt of | | [...] | S09.93XA | | | Active | 49183486 | | | injury | | | | | | +---------+ + + +--------+ + + | Problem | Spondylosi | M47.816 | | | Active | 59855970 | | | s of | | | | | | | | lumbar | | | | | | | | joint | | | | | | +---------+ + + +--------+ + + | 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 | | | Active | 13684739 | | | (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 | | | | | | | | elial | | | | | | | | neoplasia | | | | | | | | III) | | | | | | +---------+ + + +--------+ + + | Problem | Skin | L98.9 | | | Active | 84424883 | | | lesion | | | | | | +---------+ + + +--------+ + + | Problem | Change in | L81.9 | | | Active | 46559443 | | | mole | | | | | | +---------+ + + +--------+ + + | Problem | Encounter | Z71.89 | | | Active | 818657618 | | | for | | | | | | | | medication | | | | | | | | review | | | | | | | | and | | | | | | | | counseling | | | | | | +---------+ + + +--------+ + + | Problem | Elevated | R68.89 | | | Active | 160323769 | | | laboratory | | | | | | | | test | | | | | | | | result | | | | | | +---------+ + + +--------+ + + | Problem | Lumbosacra | M54.17 | | | Active | 7078065 | | | l | | | | | | | | radiculopa | | | | | | | | thy due to | | | | | | | | trauma | | | | | | +---------+ + + +--------+ + + | 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 | | | Active | 685925252 | | | athy, | | | | | | | | peripheral | | | | | | | | | | | | | | | | sensorimot | | | | | | | | or axonal | | | | | | +---------+ + + +--------+ + + | Problem | Rheumatoid | M06.079 | | | Active | 39093409 | | | arthritis | | | | | | | | involving | | | | | | | | ankle | | | | | | +---------+ + + +--------+ + + | Problem | Hyperglyce | | R73.9 | | Active | 93162575 | | | emerald | | | | | | +---------+ + + +--------+ + + | Problem | Hypertensi | | I10 | | Active | 43228954 | | | on | | | | | | +---------+ + + +--------+ + + | Problem | History of | Z87.39 | | | Active | 429303353 | | | | | | | | | | | rheumatoid | | | | | | | | arthritis | | | | | | +---------+ + + +--------+ + + | Problem | Fatigue | | R53.83 | | Active | 29031154 | +---------+ + + +--------+ + + | Problem | Hypothyroi | | E03.9 | | Active | 17822452 | | | dism | | | | | | +---------+ + + +--------+ + + | Problem | Eustachian | H69.80 | | | Active | 36759590 | | | tube | | | | | | | | dysfunctio | | | | | | | | n | | | | | | +---------+ + + +--------+ + + | Problem | 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 | | | Active | 662152006 | | | peroneal | | | | | | | | mononeurop | | | | | | | | athy | | | | | | +---------+ + + +--------+ + + | Problem | History of | Z98.890 | | | Active | 613949981 | | | Holter | | | | | | | | monitoring | | | | | | +---------+ + + +--------+ + + | Problem | Tear of | M75.101 | | | Active | 8364139721 | | | right | | | | | 1709017 | | | rotator | | | [...] | | M54.2 | | Active | 56747047 | | | a | | | | | | +---------+ + + +--------+ + + | Problem | Other | | M47.12 | | Active | 83245985 | | | spondylosi | | | [...] | R55 | | | Active | 697618678 | +---------+ + + +--------+ + + | Problem | Personal | | Z87.898 | | Active | 613117438 | | | history of | | | | | | | | other | | | | | | | | specified | | | | | | | | conditions | | | | | | +---------+ + + +--------+ + + | 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 | 05679870 | | | anomaly | | | | | | +---------+ + + +--------+ + + | Problem | H/O | Z98.890 | | | Active | 144365410 | | | cervical | | | [...] She | | | | moved from [place] in 09/06 | | | | and [...]
--- OUTSIDE RECORDS SUMMARY | ~2017-08-15 | XMS ---
Demographics + + + | Address | [address] | | | [place] [address] | + + + | Preferred Language | Unknown | + + + | Marital Status | Unknown | + + + | Buddhist Affiliation | Unknown | + + + | Race | Unknown | + + + | Ethnic Group | Unknown | + + + Author + + + | Author | [facility] | + + + | Organization | [facility] | + + + | Address | [address] | | | [place] [address] | + + + | Phone | | + + + Care Team Providers + + + + | Care Detention Officer Name | Role | Phone | + + + + Unavailable | Unavailable | + + + + PROBLEMS +---------+ + + +--------+ + + | Type | Condition | ICD9-CM | GQC67-XH | Onset | Condition | SNOMED | | | | Code | Code | Dates | Status | Code | +---------+ + + +--------+ + + | Problem | Hypothyroi | | E03.9 | | Active | 68856624 | | | dism | | | | | | +---------+ + + +--------+ + + | Problem | Cervicalgi | | M54.2 | | Active | 81405979 | | | a | | | | | | +---------+ + + +--------+ + + | Problem | History of | Z87.39 | | | Active | 334110135 | | | | | | | | | | | fibromyalg | | | | | | | | ia | | | | | | +---------+ + + +--------+ + + | Problem | 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 | | | Active | 161622347 | | | peroneal | | | | | | | | mononeurop | | | | | | | | athy | | | | | | +---------+ + + +--------+ + + | Problem | Anxiety | F41.8 | | | Active | 196030396 | | | associated | | | | | | | | with | | | | | | | | depression | | | | | | +---------+ + + +--------+ + + | Problem | Postural | 729.90 | | | Active | 89727644 | | | imbalance | | | | | | +---------+ + + +--------+ + + | Problem | Carpal | 354.0 | | | Active | 96056787 | | | tunnel | | | | | | | | syndrome | | | | | | +---------+ + + +--------+ + + | Problem | Impingemen | 726.2 | | | Active | 5127078589 | | | t syndrome | | | | | 7955887 | | | of both | | | | | | | | shoulders | | | | | | +---------+ + + +--------+ + + | Problem | Asthma | | J45.909 | | Active | 489979221 | +---------+ + + +--------+ + + | Problem | Alopecia | L65.9 | | | Active | 32567118 | +---------+ + + +--------+ + + | Problem | GERD | | K21.9 | | Active | 625219779 | | | (gastroeso | | | | | | | | phageal | | | | | | | | reflux | | | | | | | | disease) | | | | | | +---------+ + + +--------+ + + | Problem | Eustachian | H69.80 | | | Active | 89290874 | | | tube | | | | | | | | dysfunctio | | | | | | | | n | | | | | | +---------+ + + +--------+ + + | Problem | PTSD | | F43.10 | | Active | 84303884 | | | (post-trau | | | | | | | | matic | | | | | | | | stress | | | | | | | | disorder) | | | | | | +---------+ + + +--------+ + + | Problem | History of | Z98.890 | | | Active | 280108629 | | | Holter | | | | | | | | monitoring | | | | | | +---------+ + + +--------+ + + | Problem | H/O | Z98.890 | | | Active | 491858298 | | | cervical | | | | | | | | spine | | | | | | | | surgery | | | | | | +---------+ + + +--------+ + + | 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 | 71326610 | | | anomaly | | | | | | +---------+ + + +--------+ + + | Problem | Yuko | B37.9 | | | Active | 80656583 | | | albicans | | | | | | | | infection | | | | | | +---------+ + + +--------+ + + | Problem | Dental | S09.93XA | | | Active | 70315121 | | | injury | | | | | | +---------+ + + +--------+ + + | Problem | Displaceme | M51.27 | | | Active | 60686099 | | | nt of | | [...] | S93.419A | | | Active | 30399850 | | | calcaneofi | | | | | | | | bular | | | | | | | | ligament | | | | | | | | of ankle | | | | | | +---------+ + + +--------+ + + | Problem | Personal | | Z87.898 | | Active | 560272390 | | | history of | | | | | | | | other | | | | | | | | specified | | | | | | | | conditions | | | | | | +---------+ + + +--------+ + + | Problem | Syncope | R55 | | | Active | 321501158 | +---------+ + + +--------+ + + | Problem | Nasal | | R09.81 | | Active | 33987264 | | | congestion | | | | | | +---------+ + + +--------+ + + | Problem | Other | | J30.2 | | Active | 898388017 | | | seasonal | | | | | | | | allergic | | | | | | | | rhinitis | | | | | | +---------+ + + +--------+ + + | 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 | | | Active | 081376078 | | | athy, | | | | | | | | peripheral | | | | | | | | | | | | | | | | sensorimot | | | | | | | | or axonal | | | | | | +---------+ + + +--------+ + + | Problem | Lumbosacra | M54.17 | | | Active | 5628945 | | | l | | | | | | | | radiculopa | | | | | | | | thy due to | | | | | | | | trauma | | | | | | +---------+ + + +--------+ + + | Problem | Spondylosi | M47.816 | | | Active | 80990567 | | | s of | | | | | | | | lumbar | | | | | | | | joint | | | | | | +---------+ + + +--------+ + + | Problem | Rheumatoid | M06.079 | | | Active | 39828895 | | | arthritis | | | [...] | | M47.12 | | Active | 12223882 | | | spondylosi | | | [...] | R29.3 | | | Active | 04196310 | | | imbalance | | | | | | +---------+ + + +--------+ + + | Problem | Tear of | M75.101 | | | Active | 7219445542 | | | right | | | | | 5009281 | | | rotator | | | [...] | + + + + +--------+ | Darvojmt-N 50 | anaphylaxis | Drug Allergy | [...]
--- OUTSIDE RECORDS SUMMARY | ~2017-08-15 | XMS ---
Demographics + + + | Address | [address] | | | [place] [address] | + + + | Preferred Language | Unknown | + + + | Marital Status | Unknown | + + + | Mosque Affiliation | Unknown | + + + | Race | Unknown | + + + | Ethnic Group | Unknown | + + + Author + + + | Author | [facility] | + + + | Organization | [facility] | + + + | Address | [address] | | | [place] [address] | + + + | Phone | | + + + Care Team Providers + + + + | Care Rn Security Name | Role | Phone | + + + + Unavailable | Unavailable | + + + + PROBLEMS +---------+ + + +--------+ + + | Type | Condition | ICD9-CM | RHS94-RD | Onset | Condition | SNOMED | | | | Code | Code | Dates | Status | Code | +---------+ + + +--------+ + + | Problem | Cervicalgi | | M54.2 | | Active | [id number] | | | a | | | | | | +---------+ + + +--------+ + + | Problem | Hypothyroi | | E03.9 | | Active | 37931739 | | | dism | | | | | | +---------+ + + +--------+ + + | Problem | 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 | | | Active | 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 | | | peroneal | | | | | | | | mononeurop | | | | | | | | athy | | | | | | +---------+ + + +--------+ + + | Problem | History of | Z87.39 | | | Active | 453005966 | | | | | | | | | | | fibromyalg | | | | | | | | ia | | | | | | +---------+ + + +--------+ + + | Problem | Anxiety | F41.8 | | | Active | 121530219 | | | associated | | | | | | | | with | | | | | | | | depression | | | | | | +---------+ + + +--------+ + + | Problem | Postural | 729.90 | | | Active | 44620173 | | | imbalance | | | | | | +---------+ + + +--------+ + + | Problem | Pain in | | M25.532 | | Active | 62687422 | | | left wrist | | | | | | +---------+ + + +--------+ + + | Problem | Carpal | 354.0 | | | Active | 20740067 | | | tunnel | | | | | | | | syndrome | | | | | | +---------+ + + +--------+ + + | Problem | Pain in | | M25.531 | | Active | 95721400 | | | right | | | [...] | | R63.5 | | Active | 6496087 | | | gain | | | | | | +---------+ + + +--------+ + + | Problem | Fungal | B36.9 | | | Active | 36293986 | | | rash of | | | | | | | | torso | | | | | | +---------+ + + +--------+ + + | Problem | Postural | R29.3 | | | Active | 27702334 | | | imbalance | | | | | | +---------+ + + +--------+ + + | Problem | Otitis | H60.90 | | | Active | 2863566 | | | externa | | | | | | +---------+ + + +--------+ + + | Problem | Homeless | Z59.0 | | | Active | 19070556 | +---------+ + + +--------+ + + | Problem | GERD | | K21.9 | | Active | 445238074 | | | (gastroeso | | | | | | | | phageal | | | | | | | | reflux | | | | | | | | disease) | | | | | | +---------+ + + +--------+ + + | Problem | Asthma | | J45.909 | | Active | 637428440 | +---------+ + + +--------+ + + | Problem | Impingemen | 726.2 | | | Active | 1071183024 | | | t syndrome | | | | | 4799543 | | | of both | | [...] | M75.101 | | | Active | 4511353737 | | | right | | | | | 9453403 | | | rotator | | | [...] | K04.7 | | | Active | 801864867 | | | abscess | | | [...] | M51.27 | | | Active | 84853967 | | | nt of | | [...] | | F43.10 | | Active | 00288441 | | | (post-trau | | | | | | | | matic | | | | | | | | stress | | | | | | | | disorder) | | | | | | +---------+ + + +--------+ + + | Problem | Sprain of | S93.419A | | | Active | 38123416 | | | calcaneofi | | | | | | | | bular | | | | | | | | ligament | | | | | | | | of ankle | | | | | | +---------+ + + +--------+ + + | 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.] Tylox | anaphylaxis | Drug Allergy | Feb, | Active | + + + + +--------+ | Tramadol HCl | anaphylaxis | Drug Allergy | Feb, | Active | + + + + +--------+ | Percocet | anaphylaxis | Drug Allergy | Feb, | Active | + + + + +--------+ | OxyContin | anaphylaxis | Drug Allergy | Feb, | Active | + + + + +--------+ | Oxycodone-Aceta | anaphylaxis | Drug Allergy | Feb, | Active | | minophen | | | | | + + + + +--------+ | Morphine | anaphylaxis | Drug Allergy | Feb, | Active | | Sulfate | | | | | + + + + +--------+ | Lortab | anaphylaxis | Drug Allergy | Feb, | Active | + + + + +--------+ | Codeine | anaphylaxis | Drug Allergy | Feb, | Active | + + + + +--------+ | Hydrocodone-Brannon | anaphylaxis | Drug Allergy | Feb, | Active | | taminophen | | | | | + + + + +--------+ | Vicodin | anaphylaxis | Drug Allergy | Feb, | Active | + + + + +--------+ | Guaifenesin | Unknown | Drug Allergy | Feb, | Active | + + + + +--------+ | Darvocet-N 50 | anaphylaxis | Drug Allergy | Feb, | Active | + + + + +--------+ | Augmentin | shortness of | Drug Allergy | Feb, | Active | | | breath | | | | + + + + +--------+ SOCIAL HISTORY No smoking Hx information available PLAN OF CARE + +---------+ | Activity | Details | + +---------+ +---+ | | +---+ + + + | Follow Up | prn Reason:null | + + + VITAL SIGNS + + + + | Height | 69 in | 2017-03-12 | + + + + | Weight | 256.0 lbs | 2017-03-12 | + + + + | BMI | 37.80 kg/m2 | 2017-03-12 | + + + + | Temperature | 97.3 degrees Fahrenheit | 2017-03-12 | + + + + | Heart Rate | 100 /min | 2017-03-12 | + + + + | Blood pressure systolic | 126 mm Hg | 2017-03-12 | + + + + | Blood pressure diastolic | 81 mm Hg | 2017-03-12 | + + + + MEDICATIONS + [...] + + + + + +--------+ | L-Methyl | Orally | 1 tablet | 24h | | | | Active | | folate | Once a | | | | | | | | 15 MG | day | | | | [...] + + + + + +--------+ | Fluticas | Nasally | 1 spray | 24h | | | | Active | | one | Once a | in each | | | | | | | Propiona | day | nostril | | | | | | | te 50 | | | | | | | | | MCG/ACT | | | | | | | | + + + + + + + +--------+ | Diphenhy | Oral | 1 cap | 6h | | | | Active | | dramine | every 6 | | | | | | | | 25mg | hours | | | | | | | + + + + + + + +--------+ | Ciproflo | Otic | 4 drops | 12h | | | 10 | Active | | xacin-De | Twice a | into | | | | day(s) | | | xamethas | day | affected | | | | | | | one | | ear | | | | | | | 0.3-0.1 | | | | | | | | | % | | | | | | | [...] + + + + + +--------+ | Predniso | Oral | 2 tabs | 24h | | | | Active | | ne 20mg | once | | | | | | | | | daily | | | | | | | [...] + + | Est Level III | March 12, 2017 | | | | Intermediate | | | | + + + + + IMMUNIZATIONS No Known Immunizations"
--- OUTSIDE RECORDS SUMMARY | ~2017-08-15 | XMS ---
Demographics + + + | Address | [address] | | | [place] [address] | + + + | Preferred Language | Unknown | + + + | Marital Status | Unknown | + + + | Uatsdin Affiliation | Unknown | + + + | Race | Unknown | + + + | Ethnic Group | Unknown | + + + Author + + + | Author | [facility] | + + + | Organization | [facility] | + + + | Address | [address] | | | [place] [address] | + + + | Phone | | + + + Care Team Providers + + + + | Care Storyboard Artist Name | Role | Phone | + + + + Unavailable | Unavailable | + + + + PROBLEMS +---------+ + + +--------+ + + | Type | Condition | ICD9-CM | WLJ45-[id number] | Onset | Condition | SNOMED | | | | Code | Code | Dates | Status | Code | +---------+ + + +--------+ + + | Problem | Hypothyroi | | E03.9 | | Active | 52708130 | | | dism | | | | | | +---------+ + + +--------+ + + | Problem | Cervicalgi | | M54.2 | | Active | 09176933 | | | a | | | | | | +---------+ + + +--------+ + + | Problem | History of | Z87.39 | | | Active | 230566924 | | | | | | | | | | | fibromyalg | | | | | | | | ia | | | | | | +---------+ + + +--------+ + + | Problem | 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 | | | Active | 188486485 | | | peroneal | | | | | | | | mononeurop | | | | | | | | athy | | | | | | +---------+ + + +--------+ + + | Problem | Postural | 729.90 | | | Active | 61803279 | | | imbalance | | | | | | +---------+ + + +--------+ + + | Problem | Carpal | 354.0 | | | Active | 43273689 | | | tunnel | | | | | | | | syndrome | | | | | | +---------+ + + +--------+ + + | Problem | Impingemen | 726.2 | | | Active | 5513727279 | | | t syndrome | | | | | 0063622 | | | of both | | | | | | | | shoulders | | | | | | +---------+ + + +--------+ + + | Problem | Asthma | | J45.909 | | Active | 172450981 | +---------+ + + +--------+ + + | Problem | GERD | | K21.9 | | Active | 097019885 | | | (gastroeso | | | | | | | | phageal | | | | | | | | reflux | | | | | | | | disease) | | | | | | +---------+ + + +--------+ + + | Problem | H/O | Z98.890 | | | Active | 669886641 | | | cervical | | | | | | | | spine | | | | | | | | surgery | | | | | | +---------+ + + +--------+ + + | Problem | PTSD | | F43.10 | | Active | 78034149 | | | (post-trau | | | | | | | | matic | | | | | | | | stress | | | | | | | | disorder) | | | | | | +---------+ + + +--------+ + + | Problem | Syncope | R55 | | | Active | 707553106 | +---------+ + + +--------+ + + | Problem | Sprain of | S93.419A | | | Active | 62961578 | | | calcaneofi | | | | | | | | bular | | | | | | | | ligament | | | | | | | | of ankle | | | | | | +---------+ + + +--------+ + + | Problem | Personal | | Z87.898 | | Active | 227336128 | | | history of | | | | | | | | other | | | | | | | | specified | | | | | | | | conditions | | | | | | +---------+ + + +--------+ + + | Problem | Dental | S09.93XA | | | Active | 53127623 | | | injury | | | | | | +---------+ + + +--------+ + + | Problem | Other | | J30.2 | | Active | 394032711 | | | seasonal | | | | | | | | allergic | | | | | | | | rhinitis | | | | | | +---------+ + + +--------+ + + | Problem | Fatigue | | R53.83 | | Active | 06706418 | +---------+ + + +--------+ + + | Problem | Hyperglyce | | R73.9 | | Active | 77478458 | | | emerald | | | | | | +---------+ + + +--------+ + + | Problem | Spondylosi | M47.816 | | | Active | 56462817 | | | s of | | | | | | | | lumbar | | | | | | | | joint | | | | | | +---------+ + + +--------+ + + | Problem | Displaceme | M51.27 | | | Active | 08302451 | | | nt of | | [...] | L81.9 | | | Active | 88252878 | | | mole | | | | | | +---------+ + + +--------+ + + | 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 | | | | | | | | III) | | | | | | +---------+ + + +--------+ + + | Problem | Hypertensi | | I10 | | Active | 80942281 | | | on | | | | | | +---------+ + + +--------+ + + | Problem | Skin | L98.9 | | | Active | 14580629 | | | lesion | | | | | | +---------+ + + +--------+ + + | Problem | Lumbosacra | M54.17 | | | Active | 7894938 | | | l | | | | | | | | radiculopa | | | | | | | | thy due to | | | | | | | | trauma | | | | | | +---------+ + + +--------+ + + | Problem | Tear of | M75.101 | | | Active | 7895686224 | | | right | | | | | 2538511 | | | rotator | | | [...] | M06.079 | | | Active | 68631974 | | | arthritis | | | | | | | | involving | | | | | | | | ankle | | | | | | +---------+ + + +--------+ + + | 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 | | | Active | 474025374 | | | athy, | | | [...] | Z98.890 | | | Active | 832501213 | | | Holter | | | | | | | | monitoring | | | | | | +---------+ + + +--------+ + + | 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 | 99399705 | | | anomaly | | | | | | +---------+ + + +--------+ + + | Problem | Other | | M47.12 | | Active | 80421208 | | | spondylosi | | | [...] | H69.80 | | | Active | 62735028 | | | tube | | | [...] Tylox | anaphylaxis | Drug Allergy | May, | Active | + + + + +--------+ | Tramadol HCl | anaphylaxis | Drug Allergy | May, | Active | + + + + +--------+ | Percocet | anaphylaxis | Drug Allergy | May, | Active | + + + + +--------+ | OxyContin | anaphylaxis | Drug Allergy | May, | Active | + + + + +--------+ | Oxycodone-Aceta | anaphylaxis | Drug Allergy | May, | Active | | minophen | | | | | + + + + +--------+ | Morphine | anaphylaxis | Drug Allergy | May, | Active | | Sulfate | | | | | + + + + +--------+ | Lortab | anaphylaxis | Drug Allergy | May, | Active | + + + + +--------+ | Codeine | anaphylaxis | Drug Allergy | May, | Active | + + + + +--------+ | Hydrocodone-Brannon | anaphylaxis | Drug Allergy | May, | Active | | taminophen | | | | | + + + + +--------+ | Vicodin | anaphylaxis | Drug Allergy | May, | Active | + + + + +--------+ | Guaifenesin | Unknown | Drug Allergy | May, | Active | + + + + +--------+ | Darvocet-N 50 | anaphylaxis | Drug Allergy | May, | Active | + + + + +--------+ | Augmentin | shortness of | Drug Allergy | 12 May, 2017 | Active | | | breath | | | | + + + + +--------+ SOCIAL HISTORY No smoking Hx information available PLAN OF CARE + +---------+ | Activity | Details | + +---------+ +---+ | | +---+ + + + | Follow Up | 1 Week, prn Reason:null | + + + | Pending Test | TSH | + + + | Pending Test | Comp. Metabolic Panel (14) | + + + | Pending Test | Lipid Panel | + + + | Pending Test | Hemoglobin A1C Panel | + + + | Pending Test | CBC | + + + | Pending Test | Anemia Panel, Comprehensive | + + + VITAL SIGNS + + + + | Height | 69 in | 2017-06-04 | + + + + | Weight | 249.4 lbs | 2017-06-04 | + + + + | BMI | 36.83 kg/m2 | 2017-06-04 | + + + + | Temperature | 96.9 degrees Fahrenheit | 2017-06-04 | + + + + | Heart Rate | 88 /min | 2017-06-04 | + + + + | Blood pressure systolic | 133 mm Hg | 2017-06-04 | + + + + | Blood pressure diastolic | 69 mm Hg | 2017-06-04 | + + + + MEDICATIONS + [...] HCl ER | prn | | | 2015 | | | | | (SR) | [...] 150mg | twice a | | | 2015 | | | | | | day [...] + + | Est Level IV | Jun 04, 2017 | | | | Extended | | | | + + + + + IMMUNIZATIONS No Known Immunizations"
--- OUTSIDE RECORDS SUMMARY | ~2017-08-15 | XMS ---
Demographics + + + | Address | [address] | | | [place] [address] | + + + | Preferred Language [...] | + + + | Organization | [facility] | + + + | Address | [address] | | | [place] [address] | + + + | Phone | | + + + Care Team Providers + + + + | Care Bookkeeping Clerks Supervisor Name | Role | Phone | + + + + Unavailable | Unavailable | + + + + PROBLEMS +---------+ + + +--------+ + + | Type | Condition | ICD9-CM | [id number] | Onset | Condition | SNOMED | | | | Code | Code | Dates | Status | Code | +---------+ + + +--------+ + + | Problem | Postural | 729.90 | | | Active | 98572226 | | | imbalance | | | | | | +---------+ + + +--------+ + + | Problem | History of | Z87.39 | | | Active | 470241847 | | | | | | | | | | | fibromyalg | | | | | | | | ia | | | | | | +---------+ + + +--------+ + + | Problem | Impingemen | 726.2 | | | Active | 7263557079 | | | t syndrome | | | | | 3896038 | | | of both | | | | | | | | shoulders | | | | | | +---------+ + + +--------+ + + | Problem | Carpal | 354.0 | | | Active | 97580493 | | | tunnel | | | | | | | | syndrome | | | | | | +---------+ + + +--------+ + + | Problem | Asthma | | J45.909 | | Active | 006824317 | +---------+ + + +--------+ + + | Problem | GERD | | K21.9 | | Active | 374517274 | | | (gastroeso | | | | | | | | phageal | | | | | | | | reflux | | | | | | | | disease) | | | | | | +---------+ + + +--------+ + + | Problem | PTSD | | F43.10 | | Active | 41944319 | | | (post-trau | | | | | | | | matic | | | | | | | | stress | | | | | | | | disorder) | | | | | | +---------+ + + +--------+ + + | Problem | Sprain of | S93.419A | | | Active | 25349829 | | | calcaneofi | | | [...] | | J30.2 | | Active | 953140371 | | | seasonal | | | | | | | | allergic | | | | | | | | rhinitis | | | | | | +---------+ + + +--------+ + + | Problem | Displaceme | M51.27 | | | Active | 18442013 | | | nt of | | [...] | S09.93XA | | | Active | 29844623 | | | injury | | | | | | +---------+ + + +--------+ + + | Problem | Spondylosi | M47.816 | | | Active | 02731140 | | | s of | | | | | | | | lumbar | | | | | | | | joint | | | | | | +---------+ + + +--------+ + + | 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 | | | Active | 78341155 | | | (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 | | | | | | | | elial | | | | | | | | neoplasia | | | | | | | | III) | | | | | | +---------+ + + +--------+ + + | Problem | Skin | L98.9 | | | Active | 65253967 | | | lesion | | | | | | +---------+ + + +--------+ + + | Problem | Change in | L81.9 | | | Active | 89573370 | | | mole | | | | | | +---------+ + + +--------+ + + | Problem | Encounter | Z71.89 | | | Active | 118717171 | | | for | | | | | | | | medication | | | | | | | | review | | | | | | | | and | | | | | | | | counseling | | | | | | +---------+ + + +--------+ + + | Problem | Elevated | R68.89 | | | Active | 492596235 | | | laboratory | | | | | | | | test | | | | | | | | result | | | | | | +---------+ + + +--------+ + + | Problem | Lumbosacra | M54.17 | | | Active | 6337759 | | | l | | | | | | | | radiculopa | | | | | | | | thy due to | | | | | | | | trauma | | | | | | +---------+ + + +--------+ + + | 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 | | | Active | 772281492 | | | athy, | | | | | | | | peripheral | | | | | | | | | | | | | | | | sensorimot | | | | | | | | or axonal | | | | | | +---------+ + + +--------+ + + | Problem | Rheumatoid | M06.079 | | | Active | 14897529 | | | arthritis | | | | | | | | involving | | | | | | | | ankle | | | | | | +---------+ + + +--------+ + + | Problem | Hyperglyce | | R73.9 | | Active | 91252152 | | | emerald | | | | | | +---------+ + + +--------+ + + | Problem | Hypertensi | | I10 | | Active | 11004706 | | | on | | | | | | +---------+ + + +--------+ + + | Problem | History of | Z87.39 | | | Active | 167398849 | | | | | | | | | | | rheumatoid | | | | | | | | arthritis | | | | | | +---------+ + + +--------+ + + | Problem | Fatigue | | R53.83 | | Active | 12420171 | +---------+ + + +--------+ + + | Problem | Hypothyroi | | E03.9 | | Active | 69742356 | | | dism | | | | | | +---------+ + + +--------+ + + | Problem | Eustachian | H69.80 | | | Active | 66892320 | | | tube | | | | | | | | dysfunctio | | | | | | | | n | | | | | | +---------+ + + +--------+ + + | Problem | 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 | | | Active | 795623914 | | | peroneal | | | | | | | | mononeurop | | | | | | | | athy | | | | | | +---------+ + + +--------+ + + | Problem | History of | Z98.890 | | | Active | 716261339 | | | Holter | | | | | | | | monitoring | | | | | | +---------+ + + +--------+ + + | Problem | Tear of | M75.101 | | | Active | 0543187854 | | | right | | | | | 5800628 | | | rotator | | | [...] | | M54.2 | | Active | 27801371 | | | a | | | | | | +---------+ + + +--------+ + + | Problem | Other | | M47.12 | | Active | 43502057 | | | spondylosi | | | [...] | R55 | | | Active | 944261288 | +---------+ + + +--------+ + + | Problem | Personal | | Z87.898 | | Active | 311600986 | | | history of | | | | | | | | other | | | | | | | | specified | | | | | | | | conditions | | | | | | +---------+ + + +--------+ + + | 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 | 80099569 | | | anomaly | | | | | | +---------+ + + +--------+ + + | Problem | H/O | Z98.890 | | | Active | 679069379 | | | cervical | | | [...] Tylox | anaphylaxis | Drug Allergy | Jun, | Active | + + + + +--------+ | Tramadol HCl | anaphylaxis | Drug Allergy | Jun, | Active | + + + + +--------+ | Percocet | anaphylaxis | Drug Allergy | Jun, | Active | + + + + +--------+ | OxyContin | anaphylaxis | Drug Allergy | Jun, | Active | + + + + +--------+ | Oxycodone-Aceta | anaphylaxis | Drug Allergy | Jun, | Active | | minophen | | | | | + + + + +--------+ | Morphine | anaphylaxis | Drug Allergy | Jun, | Active | | Sulfate | | | | | + + + + +--------+ | Lortab | anaphylaxis | Drug Allergy | Jun, | Active | + + + + +--------+ | Codeine | anaphylaxis | Drug Allergy | Jun, | Active | + + + + +--------+ | Hydrocodone-Brannon | anaphylaxis | Drug Allergy | Jun, | Active | | taminophen | | | | | + + + + +--------+ | Vicodin | anaphylaxis | Drug Allergy | Jun, | Active | + + + + +--------+ | Guaifenesin | Unknown | Drug Allergy | Jun, | Active | + + + + +--------+ | Darvocet-N 50 | anaphylaxis | Drug Allergy | Jun, | Active | + + + + +--------+ | Augmentin | shortness of | Drug Allergy | Jun, | Active | | | breath | | | | + + + + +--------+ SOCIAL HISTORY Never Assessed PLAN OF CARE + +---------+ | Activity | Details | + +---------+ +---+ | | +---+ + + + | Follow Up | prn Reason:null | + + + VITAL SIGNS + + + + | Height | 69 in | 2017-06-25 | + + + + | Weight | 238.0 lbs | 2017-06-25 | + + + + | BMI | 35.14 kg/m2 | 2017-06-25 | + + + + | Temperature | 97.8 degrees Fahrenheit | 2017-06-25 | + + + + | Heart Rate | 78 /min | 2017-06-25 | + + + + | Blood pressure systolic | 101 mm Hg | 2017-06-25 | + + + + | Blood pressure diastolic | 65 mm Hg | 2017-06-25 | + + + + MEDICATIONS Unknown Medications RESULTS No Results PROCEDURES [...] She | | | | moved from [place] in 09/06 | | | | and [...]
--- OUTSIDE RECORDS SUMMARY | ~2017-08-15 | XMS ---
Demographics + + + | Address | [address] | | | [place] [address] | + + + | Preferred Language | Unknown | + + + | Marital Status | Unknown | + + + | Holiness Affiliation | Unknown | + + + | Race | Unknown | + + + | Ethnic Group | Unknown | + + + Author + + + | Author | [facility] | + + + | Organization | [facility] | + + + | Address | [address] | | | [place] [address] | + + + | Phone | | + + + Care Team Providers + + + + | Care Security Incident Response Specialist Name | Role | Phone | + + + + Unavailable | Unavailable | + + + + PROBLEMS +---------+ + + +--------+ + + | Type | Condition | ICD9-CM | [id number]-VP | Onset | Condition | SNOMED | | | | Code | Code | Dates | Status | Code | +---------+ + + +--------+ + + | Problem | Displaceme | M51.27 | | | Active | 31483982 | | | nt of | | [...] | M06.079 | | | Active | 79652583 | | | arthritis | | | | | | | | involving | | | | | | | | ankle | | | | | | +---------+ + + +--------+ + + | Problem | Spondylosi | M47.816 | | | Active | 14157705 | | | s of | | | | | | | | lumbar | | | | | | | | joint | | | | | | +---------+ + + +--------+ + + | Problem | Other | | M47.12 | | Active | 06937711 | | | spondylosi | | | [...] | G57.32 | | | Active | 129353013 | | | peroneal | | | [...] | | E03.9 | | Active | 38851665 | | | dism | | | | | | +---------+ + + +--------+ + + | Problem | Cervicalgi | | M54.2 | | Active | 88849866 | | | a | | | | | | +---------+ + + +--------+ + + | Problem | Lumbosacra | M54.17 | | | Active | 0660053 | | | l | | | | | | | | radiculopa | | | | | | | | thy due to | | | | | | | | trauma | | | | | | +---------+ + + +--------+ + + | 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 | | | Active | 819641177 | | | athy, | | | [...] | M75.101 | | | Active | 5865730427 | | | right | | | | | 6094832 | | | rotator | | | [...] | R29.3 | | | Active | 81225496 | | | imbalance | | | | | | +---------+ + + +--------+ + + | Problem | Postural | 729.90 | | | Active | 90058709 | | | imbalance | | | | | | +---------+ + + +--------+ + + | Problem | Carpal | 354.0 | | | Active | 50936056 | | | tunnel | | | | | | | | syndrome | | | | | | +---------+ + + +--------+ + + | Problem | History of | Z87.39 | | | Active | 545027544 | | | | | | | | | | | fibromyalg | | | | | | | | ia | | | | | | +---------+ + + +--------+ + + | Problem | Anxiety | F41.8 | | | Active | 091614033 | | | associated | | | | | | | | with | | | | | | | | depression | | | | | | +---------+ + + +--------+ + + | Problem | GERD | | K21.9 | | Active | 796884073 | | | (gastroeso | | | | | | | | phageal | | | | | | | | reflux | | | | | | | | disease) | | | | | | +---------+ + + +--------+ + + | Problem | PTSD | | F43.10 | | Active | 66077994 | | | (post-trau | | | | | | | | matic | | | | | | | | stress | | | | | | | | disorder) | | | | | | +---------+ + + +--------+ + + | Problem | Impingemen | 726.2 | | | Active | 9723300870 | | | t syndrome | | | | | 1283758 | | | of both | | | | | | | | shoulders | | | | | | +---------+ + + +--------+ + + | Problem | Sprain of | S93.419A | | | Active | 16347889 | | | calcaneofi | | | | | | | | bular | | | | | | | | ligament | | | | | | | | of ankle | | | | | | +---------+ + + +--------+ + + | Problem | Asthma | | J45.909 | | Active | 193552312 | +---------+ + + +--------+ + + [...]
--- OUTSIDE RECORDS SUMMARY | ~2017-08-15 | XMS ---
Demographics + + + | Address | [address] | | | [place] [address] | + + + | Preferred Language | Unknown | + + + | Marital Status | Unknown | + + + | Bahai Affiliation | Unknown | + + + | Race | Unknown | + + + | Ethnic Group | Unknown | + + + Author + + + | Author | [facility] | + + + | Organization | [facility] | + + + | Address | [address] | | | [place] [address] | + + + | Phone | | + + + Care Team Providers + + + + | Care Project Development Coordinator Name | Role | Phone | + + + + Unavailable | Unavailable | + + + + PROBLEMS +---------+ + + +--------+ + + | Type | Condition | ICD9-CM | WHC82-KU | Onset | Condition | SNOMED | | | | Code | Code | Dates | Status | Code | +---------+ + + +--------+ + + | Problem | Postural | 729.90 | | | Active | 92278782 | | | imbalance | | | | | | +---------+ + + +--------+ + + | Problem | History of | Z87.39 | | | Active | 110090298 | | | | | | | | | | | fibromyalg | | | | | | | | ia | | | | | | +---------+ + + +--------+ + + | Problem | Impingemen | 726.2 | | | Active | 2260309641 | | | t syndrome | | | | | 4948882 | | | of both | | | | | | | | shoulders | | | | | | +---------+ + + +--------+ + + | Problem | Carpal | 354.0 | | | Active | 69378738 | | | tunnel | | | | | | | | syndrome | | | | | | +---------+ + + +--------+ + + | Problem | Asthma | | J45.909 | | Active | 141836374 | +---------+ + + +--------+ + + | Problem | GERD | | K21.9 | | Active | 517211170 | | | (gastroeso | | | | | | | | phageal | | | | | | | | reflux | | | | | | | | disease) | | | | | | +---------+ + + +--------+ + + | Problem | PTSD | | F43.10 | | Active | 05652974 | | | (post-trau | | | | | | | | matic | | | | | | | | stress | | | | | | | | disorder) | | | | | | +---------+ + + +--------+ + + | Problem | Sprain of | S93.419A | | | Active | 17869476 | | | calcaneofi | | | [...] | | J30.2 | | Active | 850702852 | | | seasonal | | | | | | | | allergic | | | | | | | | rhinitis | | | | | | +---------+ + + +--------+ + + | Problem | Displaceme | M51.27 | | | Active | 88802680 | | | nt of | | [...] | S09.93XA | | | Active | 47924957 | | | injury | | | | | | +---------+ + + +--------+ + + | Problem | Spondylosi | M47.816 | | | Active | 18451092 | | | s of | | | | | | | | lumbar | | | | | | | | joint | | | | | | +---------+ + + +--------+ + + | 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 | | | | | | | | III) | | | | | | +---------+ + + +--------+ + + | Problem | Skin | L98.9 | | | Active | 89839841 | | | lesion | | | | | | +---------+ + + +--------+ + + | Problem | Change in | L81.9 | | | Active | 51234241 | | | mole | | | | | | +---------+ + + +--------+ + + | Problem | Encounter | Z71.89 | | | Active | 427512592 | | | for | | | | | | | | medication | | | | | | | | review | | | | | | | | and | | | | | | | | counseling | | | | | | +---------+ + + +--------+ + + | Problem | Elevated | R68.89 | | | Active | 106930532 | | | laboratory | | | | | | | | test | | | | | | | | result | | | | | | +---------+ + + +--------+ + + | Problem | Lumbosacra | M54.17 | | | Active | 1364030 | | | l | | | | | | | | radiculopa | | | | | | | | thy due to | | | | | | | | trauma | | | | | | +---------+ + + +--------+ + + | 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 | | | Active | 492272571 | | | athy, | | | | | | | | peripheral | | | | | | | | | | | | | | | | sensorimot | | | | | | | | or axonal | | | | | | +---------+ + + +--------+ + + | Problem | Rheumatoid | M06.079 | | | Active | 54445581 | | | arthritis | | | | | | | | involving | | | | | | | | ankle | | | | | | +---------+ + + +--------+ + + | Problem | Hyperglyce | | R73.9 | | Active | 69285125 | | | emerald | | | | | | +---------+ + + +--------+ + + | Problem | Hypertensi | | I10 | | Active | 70751829 | | | on | | | | | | +---------+ + + +--------+ + + | Problem | History of | Z87.39 | | | Active | 695566205 | | | | | | | | | | | rheumatoid | | | | | | | | arthritis | | | | | | +---------+ + + +--------+ + + | Problem | Fatigue | | R53.83 | | Active | 80331458 | +---------+ + + +--------+ + + | Problem | Hypothyroi | | E03.9 | | Active | 70222445 | | | dism | | | | | | +---------+ + + +--------+ + + | Problem | Eustachian | H69.80 | | | Active | 86657632 | | | tube | | | | | | | | dysfunctio | | | | | | | | n | | | | | | +---------+ + + +--------+ + + | Problem | 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 | | | Active | 087470027 | | | peroneal | | | | | | | | mononeurop | | | | | | | | athy | | | | | | +---------+ + + +--------+ + + | Problem | History of | Z98.890 | | | Active | 364794483 | | | Holter | | | | | | | | monitoring | | | | | | +---------+ + + +--------+ + + | Problem | Tear of | M75.101 | | | Active | 3328199639 | | | right | | | | | 8249427 | | | rotator | | | [...] | | M54.2 | | Active | 94917091 | | | a | | | | | | +---------+ + + +--------+ + + | Problem | Other | | M47.12 | | Active | 98991032 | | | spondylosi | | | [...] | R55 | | | Active | 594590769 | +---------+ + + +--------+ + + | Problem | Personal | | Z87.898 | | Active | 898374175 | | | history of | | | | | | | | other | | | | | | | | specified | | | | | | | | conditions | | | | | | +---------+ + + +--------+ + + | 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 | 61774286 | | | anomaly | | | | | | +---------+ + + +--------+ + + | Problem | H/O | Z98.890 | | | Active | 002636252 | | | cervical | | | [...] | shortness of | Drug Allergy | May, | Active | | | breath | | | | + + + + +--------+ SOCIAL HISTORY Never Assessed PLAN OF CARE + +---------+ | Activity | Details | + +---------+ +---+ | | +---+ + + + | Follow Up | prn Reason:null | + + + | Pending Test | Arthritis Panel II | + + + | Pending Test | X ray : Hand AP/L/O (3+views)- LT | + + + | Pending Test | X ray : Hand AP/L/O (3+views)- RT | + + + VITAL SIGNS + + + + | Height | 69 in | 2017-06-11 | + + + + | Weight | 242.4 lbs | 2017-06-11 | + + + + | BMI | 35.79 kg/m2 | 2017-06-11 | + + + + | Temperature | 97.2 degrees Fahrenheit | 2017-06-11 | + + + + | Heart Rate | 79 /min | 2017-06-11 | + + + + | Blood pressure systolic | 108 mm Hg | 2017-06-11 | + + + + | Blood pressure diastolic | 68 mm Hg | 2017-06-11 | + + + + MEDICATIONS + [...] Orally | 1 tablet | | 15 Apr, | | | Active | | n [...] She | | | | moved from [place] in 09/06 | | | | and [...] history of | | | | recently (7/17) | | + + + + | [...]
--- OUTSIDE RECORDS SUMMARY | ~2017-08-15 | XMS ---
Demographics + + + | Address | [address] | | | [place] [address] | + + + | Preferred Language | Unknown | + + + | Marital Status | Unknown | + + + | Hindu Affiliation | Unknown | + + + | Race | Unknown | + + + | Ethnic Group | Unknown | + + + Author + + + | Author | [facility] | + + + | Organization | [facility] | + + + | Address | [address] | | | [place] [address] | + + + | Phone | | + + + Care Team Providers + + + + | Care Audio/Video Engineer Name | Role | Phone | + + + + Unavailable | Unavailable | + + + + PROBLEMS +---------+ + + +--------+ + + | Type | Condition | ICD9-CM | VPL01-MM | Onset | Condition | SNOMED | | | | Code | Code | Dates | Status | Code | +---------+ + + +--------+ + + | Problem | Postural | 729.90 | | | Active | 32716703 | | | imbalance | | | | | | +---------+ + + +--------+ + + | Problem | History of | Z87.39 | | | Active | 854362267 | | | | | | | | | | | fibromyalg | | | | | | | | ia | | | | | | +---------+ + + +--------+ + + | Problem | Impingemen | 726.2 | | | Active | 5142312016 | | | t syndrome | | | | | 5031537 | | | of both | | | | | | | | shoulders | | | | | | +---------+ + + +--------+ + + | Problem | Carpal | 354.0 | | | Active | 83605828 | | | tunnel | | | | | | | | syndrome | | | | | | +---------+ + + +--------+ + + | Problem | Asthma | | J45.909 | | Active | 320894588 | +---------+ + + +--------+ + + | Problem | GERD | | K21.9 | | Active | 400880195 | | | (gastroeso | | | | | | | | phageal | | | | | | | | reflux | | | | | | | | disease) | | | | | | +---------+ + + +--------+ + + | Problem | PTSD | | F43.10 | | Active | 61255443 | | | (post-trau | | | | | | | | matic | | | | | | | | stress | | | | | | | | disorder) | | | | | | +---------+ + + +--------+ + + | Problem | Sprain of | S93.419A | | | Active | 07729796 | | | calcaneofi | | | [...] | | J30.2 | | Active | 542734614 | | | seasonal | | | | | | | | allergic | | | | | | | | rhinitis | | | | | | +---------+ + + +--------+ + + | Problem | Displaceme | M51.27 | | | Active | 88950739 | | | nt of | | [...] | S09.93XA | | | Active | 45037054 | | | injury | | | | | | +---------+ + + +--------+ + + | Problem | Spondylosi | M47.816 | | | Active | 47541391 | | | s of | | | | | | | | lumbar | | | | | | | | joint | | | | | | +---------+ + + +--------+ + + | 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 | | | Active | 32619037 | | | (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 | | | | | | | | elial | | | | | | | | neoplasia | | | | | | | | III) | | | | | | +---------+ + + +--------+ + + | Problem | Skin | L98.9 | | | Active | 50516419 | | | lesion | | | | | | +---------+ + + +--------+ + + | Problem | Change in | L81.9 | | | Active | 95991362 | | | mole | | | | | | +---------+ + + +--------+ + + | Problem | Encounter | Z71.89 | | | Active | 740360675 | | | for | | | | | | | | medication | | | | | | | | review | | | | | | | | and | | | | | | | | counseling | | | | | | +---------+ + + +--------+ + + | Problem | Elevated | R68.89 | | | Active | 037979645 | | | laboratory | | | | | | | | test | | | | | | | | result | | | | | | +---------+ + + +--------+ + + | Problem | Lumbosacra | M54.17 | | | Active | 2476104 | | | l | | | | | | | | radiculopa | | | | | | | | thy due to | | | | | | | | trauma | | | | | | +---------+ + + +--------+ + + | 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 | | | Active | 717789644 | | | athy, | | | | | | | | peripheral | | | | | | | | | | | | | | | | sensorimot | | | | | | | | or axonal | | | | | | +---------+ + + +--------+ + + | Problem | Rheumatoid | M06.079 | | | Active | 70475816 | | | arthritis | | | | | | | | involving | | | | | | | | ankle | | | | | | +---------+ + + +--------+ + + | Problem | Hyperglyce | | R73.9 | | Active | 03485947 | | | emerald | | | | | | +---------+ + + +--------+ + + | Problem | Hypertensi | | I10 | | Active | 55749396 | | | on | | | | | | +---------+ + + +--------+ + + | Problem | History of | Z87.39 | | | Active | 447715015 | | | | | | | | | | | rheumatoid | | | | | | | | arthritis | | | | | | +---------+ + + +--------+ + + | Problem | Fatigue | | R53.83 | | Active | 62231809 | +---------+ + + +--------+ + + | Problem | Hypothyroi | | E03.9 | | Active | 58204232 | | | dism | | | | | | +---------+ + + +--------+ + + | Problem | Eustachian | H69.80 | | | Active | 45871427 | | | tube | | | | | | | | dysfunctio | | | | | | | | n | | | | | | +---------+ + + +--------+ + + | Problem | 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 | | | Active | 815509296 | | | peroneal | | | | | | | | mononeurop | | | | | | | | athy | | | | | | +---------+ + + +--------+ + + | Problem | History of | Z98.890 | | | Active | 682404635 | | | Holter | | | | | | | | monitoring | | | | | | +---------+ + + +--------+ + + | Problem | Tear of | M75.101 | | | Active | 7619982914 | | | right | | | | | 2765978 | | | rotator | | | [...] | | M54.2 | | Active | 63812589 | | | a | | | | | | +---------+ + + +--------+ + + | Problem | Other | | M47.12 | | Active | 97920297 | | | spondylosi | | | [...] | R55 | | | Active | 465222062 | +---------+ + + +--------+ + + | Problem | Personal | | Z87.898 | | Active | 471308439 | | | history of | | | | | | | | other | | | | | | | | specified | | | | | | | | conditions | | | | | | +---------+ + + +--------+ + + | 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 | 64541920 | | | anomaly | | | | | | +---------+ + + +--------+ + + | Problem | H/O | Z98.890 | | | Active | 569632944 | | | cervical | | | [...] She | | | | moved from [place] in 09/06 | | | | and [...]
--- OUTSIDE RECORDS SUMMARY | ~2017-08-15 | XMS ---
Demographics + + + | Address | [address] | | | [place] [address] | + + + | Preferred Language [...] | + + + | Organization | [facility] | + + + | Address | [address] | | | [place] [address] | + + + | Phone | | + + + Care Team Providers + + + + | Care Blood Typer Name | Role | Phone | + + + + Unavailable | Unavailable | + + + + PROBLEMS +---------+ + + +--------+ + + | Type | Condition | ICD9-CM | RSP74-FT | Onset | Condition | SNOMED | | | | Code | Code | Dates | Status | Code | +---------+ + + +--------+ + + | Problem | Cervicalgi | | M54.2 | | Active | 41433443 | | | a | | | | | | +---------+ + + +--------+ + + | Problem | Hypothyroi | | E03.9 | | Active | 82140916 | | | dism | | | | | | +---------+ + + +--------+ + + | Problem | 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 | | | Active | 717474850 | | | peroneal | | | | | | | | mononeurop | | | | | | | | athy | | | | | | +---------+ + + +--------+ + + | Problem | History of | Z87.39 | | | Active | 348274331 | | | | | | | | | | | fibromyalg | | | | | | | | ia | | | | | | +---------+ + + +--------+ + + | Problem | Anxiety | F41.8 | | | Active | 159583772 | | | associated | | | | | | | | with | | | | | | | | depression | | | | | | +---------+ + + +--------+ + + | Problem | Postural | 729.90 | | | Active | 63068732 | | | imbalance | | | | | | +---------+ + + +--------+ + + | Problem | Pain in | | M25.532 | | Active | 79441885 | | | left wrist | | | | | | +---------+ + + +--------+ + + | Problem | Carpal | 354.0 | | | Active | 08494283 | | | tunnel | | | | | | | | syndrome | | | | | | +---------+ + + +--------+ + + | Problem | Pain in | | M25.531 | | Active | 57237129 | | | right | | | [...] | | R63.5 | | Active | 0907399 | | | gain | | | | | | +---------+ + + +--------+ + + | Problem | Fungal | B36.9 | | | Active | 48571594 | | | rash of | | | | | | | | torso | | | | | | +---------+ + + +--------+ + + | Problem | Postural | R29.3 | | | Active | 09122265 | | | imbalance | | | | | | +---------+ + + +--------+ + + | Problem | Otitis | H60.90 | | | Active | 7890769 | | | externa | | | | | | +---------+ + + +--------+ + + | Problem | Homeless | Z59.0 | | | Active | 91465172 | +---------+ + + +--------+ + + | Problem | GERD | | K21.9 | | Active | 430249066 | | | (gastroeso | | | | | | | | phageal | | | | | | | | reflux | | | | | | | | disease) | | | | | | +---------+ + + +--------+ + + | Problem | Asthma | | J45.909 | | Active | 980363226 | +---------+ + + +--------+ + + | Problem | Impingemen | 726.2 | | | Active | 4519297847 | | | t syndrome | | | | | 8967140 | | | of both | | [...] | M75.101 | | | Active | 2349390480 | | | right | | | | | 8063447 | | | rotator | | | [...] | K04.7 | | | Active | 515311610 | | | abscess | | | [...] | M51.27 | | | Active | 24093527 | | | nt of | | [...] | | F43.10 | | Active | 62669693 | | | (post-trau | | | | | | | | matic | | | | | | | | stress | | | | | | | | disorder) | | | | | | +---------+ + + +--------+ + + | Problem | Sprain of | S93.419A | | | Active | 65813536 | | | calcaneofi | | | | | | | | bular | | | | | | | | ligament | | | | | | | | of ankle | | | | | | +---------+ + + +--------+ + + | 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 | | | Active | 620519357 | | | athy, | | | | | | | | peripheral | | | | | | | | | | | | | | | | sensorimot | | | | | | | | or axonal | | | | | | +---------+ + + +--------+ + + | Problem | Lumbosacra | M54.17 | | | Active | 0516071 | | | l | | | | | | | | radiculopa | | | | | | | | thy due to | | | | | | | | trauma | | | | | | +---------+ + + +--------+ + + | Problem | Spondylosi | M47.816 | | | Active | 84871409 | | | s of | | | | | | | | lumbar | | | | | | | | joint | | | | | | +---------+ + + +--------+ + + | Problem | Rheumatoid | M06.079 | | | Active | 79741592 | | | arthritis | | | | | | | | involving | | | | | | | | ankle | | | | | | +---------+ + + +--------+ + + ALLERGIES Unknown Allergies SOCIAL HISTORY No smoking Hx information available PLAN OF CARE VITAL SIGNS MEDICATIONS + + +---------+ +--------+ + +--------+ | Medicati | Instruct | Dosage | Frequenc | Start | End Date | Duration | Status | | on | ions | | y | Date | | | | + + +---------+ +--------+ + +--------+ | Xopenex | Inhalati | 2 puffs | 6h | | | 30 | Active | | HFA 45 | on every | | | | | day(s) | | | MCG/ACT | 6 hrs | | | | | | | + + +---------+ +--------+ + +--------+ RESULTS No Results PROCEDURES No Known procedures IMMUNIZATIONS No Known Immunizations"
--- OUTSIDE RECORDS SUMMARY | ~2017-08-15 | XMS ---
Demographics + + + | Address | [address] | | | [place] [address] | + + + | Preferred Language [...] | + + + | Organization | [facility] | + + + | Address | [address] | | | [place] [address] | + + + | Phone | | + + + Care Team Providers + + + + | Care Rn Clinical Review Name | Role | Phone | + + + + Unavailable | Unavailable | + + + + PROBLEMS +---------+ + + +--------+ + + | Type | Condition | ICD9-CM | XON33-AM | Onset | Condition | SNOMED | | | | Code | Code | Dates | Status | Code | +---------+ + + +--------+ + + | Problem | Cervicalgi | | M54.2 | | Active | 54349555 | | | a | | | | | | +---------+ + + +--------+ + + | Problem | Hypothyroi | | E03.9 | | Active | 76304659 | | | dism | | | | | | +---------+ + + +--------+ + + | Problem | 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 | | | Active | 437682381 | | | peroneal | | | | | | | | mononeurop | | | | | | | | athy | | | | | | +---------+ + + +--------+ + + | Problem | History of | Z87.39 | | | Active | 734820077 | | | | | | | | | | | fibromyalg | | | | | | | | ia | | | | | | +---------+ + + +--------+ + + | Problem | Anxiety | F41.8 | | | Active | 559532767 | | | associated | | | | | | | | with | | | | | | | | depression | | | | | | +---------+ + + +--------+ + + | Problem | Postural | 729.90 | | | Active | 87436792 | | | imbalance | | | | | | +---------+ + + +--------+ + + | Problem | Pain in | | M25.532 | | Active | 64230966 | | | left wrist | | | | | | +---------+ + + +--------+ + + | Problem | Carpal | 354.0 | | | Active | 37138113 | | | tunnel | | | | | | | | syndrome | | | | | | +---------+ + + +--------+ + + | Problem | Pain in | | M25.531 | | Active | 05883515 | | | right | | | [...] | | R63.5 | | Active | 1639421 | | | gain | | | | | | +---------+ + + +--------+ + + | Problem | Fungal | B36.9 | | | Active | 14235439 | | | rash of | | | | | | | | torso | | | | | | +---------+ + + +--------+ + + | Problem | Postural | R29.3 | | | Active | 18828640 | | | imbalance | | | | | | +---------+ + + +--------+ + + | Problem | Otitis | H60.90 | | | Active | 5933507 | | | externa | | | | | | +---------+ + + +--------+ + + | Problem | Homeless | Z59.0 | | | Active | 30825475 | +---------+ + + +--------+ + + | Problem | GERD | | K21.9 | | Active | 325816887 | | | (gastroeso | | | | | | | | phageal | | | | | | | | reflux | | | | | | | | disease) | | | | | | +---------+ + + +--------+ + + | Problem | Asthma | | J45.909 | | Active | [id number] | +---------+ + + +--------+ + + | Problem | Impingemen | 726.2 | | | Active | [id number] | | | t syndrome | | | | | [id number] | | | of both | | [...] | M75.101 | | | Active | [id number] | | | right | | | | | 9082560 | | | rotator | | | [...] | K04.7 | | | Active | [id number] | | | abscess | | | [...] | M51.27 | | | Active | 29925625 | | | nt of | | [...] | | F43.10 | | Active | [id number] | | | (post-trau | | | | | | | | matic | | | | | | | | stress | | | | | | | | disorder) | | | | | | +---------+ + + +--------+ + + | Problem | Sprain of | S93.419A | | | Active | 33103159 | | | calcaneofi | | | | | | | | bular | | | | | | | | ligament | | | | | | | | of ankle | | | | | | +---------+ + + +--------+ + + | 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
--- OUTSIDE RECORDS SUMMARY | ~2017-08-15 | XMS ---
Demographics + + + | Address | [address] | | | [place] [address] | + + + | Preferred Language | Unknown | + + + | Marital Status | Unknown | + + + | Latter Day Affiliation | Unknown | + + + | Race | Unknown | + + + | Ethnic Group | Unknown | + + + Author + + + | Author | [facility] | + + + | Organization | [facility] | + + + | Address | [address] | | | [place] [address] | + + + | Phone | | + + + Care Team Providers + + + + | Care Medical Delivery Driver Name | Role | Phone | + + + + Unavailable | Unavailable | + + + + PROBLEMS +---------+ + + +--------+ + + | Type | Condition | ICD9-CM | [id number] | Onset | Condition | SNOMED | | | | Code | Code | Dates | Status | Code | +---------+ + + +--------+ + + | Problem | Hypothyroi | | E03.9 | | Active | [id number] | | | dism | | | | | | +---------+ + + +--------+ + + | Problem | Cervicalgi | | M54.2 | | Active | 99126270 | | | a | | | | | | +---------+ + + +--------+ + + | Problem | History of | Z87.39 | | | Active | 794293976 | | | | | | | | | | | fibromyalg | | | | | | | | ia | | | | | | +---------+ + + +--------+ + + | Problem | 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 | | | Active | 311196093 | | | peroneal | | | | | | | | mononeurop | | | | | | | | athy | | | | | | +---------+ + + +--------+ + + | Problem | Postural | 729.90 | | | Active | 24556382 | | | imbalance | | | | | | +---------+ + + +--------+ + + | Problem | Carpal | 354.0 | | | Active | 16191689 | | | tunnel | | | | | | | | syndrome | | | | | | +---------+ + + +--------+ + + | Problem | Impingemen | 726.2 | | | Active | 5564172289 | | | t syndrome | | | | | 9526864 | | | of both | | | | | | | | shoulders | | | | | | +---------+ + + +--------+ + + | Problem | Asthma | | J45.909 | | Active | 411194127 | +---------+ + + +--------+ + + | Problem | GERD | | K21.9 | | Active | 726712158 | | | (gastroeso | | | | | | | | phageal | | | | | | | | reflux | | | | | | | | disease) | | | | | | +---------+ + + +--------+ + + | Problem | H/O | Z98.890 | | | Active | 573968950 | | | cervical | | | | | | | | spine | | | | | | | | surgery | | | | | | +---------+ + + +--------+ + + | Problem | PTSD | | F43.10 | | Active | 30418425 | | | (post-trau | | | | | | | | matic | | | | | | | | stress | | | | | | | | disorder) | | | | | | +---------+ + + +--------+ + + | Problem | Syncope | R55 | | | Active | 089834245 | +---------+ + + +--------+ + + | Problem | Sprain of | S93.419A | | | Active | 59083276 | | | calcaneofi | | | | | | | | bular | | | | | | | | ligament | | | | | | | | of ankle | | | | | | +---------+ + + +--------+ + + | Problem | Personal | | Z87.898 | | Active | 353939421 | | | history of | | | | | | | | other | | | | | | | | specified | | | | | | | | conditions | | | | | | +---------+ + + +--------+ + + | Problem | Dental | S09.93XA | | | Active | 08155817 | | | injury | | | | | | +---------+ + + +--------+ + + | Problem | Other | | J30.2 | | Active | 184553634 | | | seasonal | | | | | | | | allergic | | | | | | | | rhinitis | | | | | | +---------+ + + +--------+ + + | Problem | Fatigue | | R53.83 | | Active | 98332052 | +---------+ + + +--------+ + + | Problem | Hyperglyce | | R73.9 | | Active | 04179516 | | | emerald | | | | | | +---------+ + + +--------+ + + | Problem | Spondylosi | M47.816 | | | Active | 53642731 | | | s of | | | | | | | | lumbar | | | | | | | | joint | | | | | | +---------+ + + +--------+ + + | Problem | Displaceme | M51.27 | | | Active | 47051686 | | | nt of | | [...] | L81.9 | | | Active | 10952279 | | | mole | | | | | | +---------+ + + +--------+ + + | 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 | | | | | | | | III) | | | | | | +---------+ + + +--------+ + + | Problem | Hypertensi | | I10 | | Active | 19169945 | | | on | | | | | | +---------+ + + +--------+ + + | Problem | Skin | L98.9 | | | Active | 80233775 | | | lesion | | | | | | +---------+ + + +--------+ + + | Problem | Lumbosacra | M54.17 | | | Active | 9069212 | | | l | | | | | | | | radiculopa | | | | | | | | thy due to | | | | | | | | trauma | | | | | | +---------+ + + +--------+ + + | Problem | Tear of | M75.101 | | | Active | 8937321719 | | | right | | | | | 3881091 | | | rotator | | | [...] | M06.079 | | | Active | 46995410 | | | arthritis | | | | | | | | involving | | | | | | | | ankle | | | | | | +---------+ + + +--------+ + + | 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 | | | Active | 454859696 | | | athy, | | | [...] | Z98.890 | | | Active | 016671202 | | | Holter | | | | | | | | monitoring | | | | | | +---------+ + + +--------+ + + | 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 | 04952315 | | | anomaly | | | | | | +---------+ + + +--------+ + + | Problem | Other | | M47.12 | | Active | 83516143 | | | spondylosi | | | [...] | H69.80 | | | Active | 18675395 | | | tube | | | [...] She | | | | moved from [place] in 09/06 | | | | and [...]
--- OUTSIDE RECORDS SUMMARY | ~2017-08-15 | XMS ---
Demographics + + + | Address | [address] | | | [place] [address] | + + + | Preferred Language | Unknown | + + + | Marital Status | Unknown | + + + | Yazdanism Affiliation | Unknown | + + + | Race | Unknown | + + + | Ethnic Group | Unknown | + + + Author + + + | Author | [facility] | + + + | Organization | [facility] | + + + | Address | [address] | | | [place] [address] | + + + | Phone | | + + + Care Team Providers + + + + | Care Business Owner/Engineer Name | Role | Phone | + + + + Unavailable | Unavailable | + + + + PROBLEMS +---------+ + + +--------+ + + | Type | Condition | ICD9-CM | FDB85-VI | Onset | Condition | SNOMED | | | | Code | Code | Dates | Status | Code | +---------+ + + +--------+ + + | Problem | Displaceme | M51.27 | | | Active | 84160722 | | | nt of | | [...] | M06.079 | | | Active | 10447810 | | | arthritis | | | | | | | | involving | | | | | | | | ankle | | | | | | +---------+ + + +--------+ + + | Problem | Spondylosi | M47.816 | | | Active | 98802349 | | | s of | | | | | | | | lumbar | | | | | | | | joint | | | | | | +---------+ + + +--------+ + + | Problem | Other | | M47.12 | | Active | 43695070 | | | spondylosi | | | [...] | G57.32 | | | Active | 972521345 | | | peroneal | | | [...] | | E03.9 | | Active | 16254442 | | | dism | | | | | | +---------+ + + +--------+ + + | Problem | Cervicalgi | | M54.2 | | Active | 61829977 | | | a | | | | | | +---------+ + + +--------+ + + | Problem | Lumbosacra | M54.17 | | | Active | 4197011 | | | l | | | | | | | | radiculopa | | | | | | | | thy due to | | | | | | | | trauma | | | | | | +---------+ + + +--------+ + + | 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 | | | Active | 689421879 | | | athy, | | | [...] | M75.101 | | | Active | 4025250161 | | | right | | | | | 3505349 | | | rotator | | | [...] | R29.3 | | | Active | 13968067 | | | imbalance | | | | | | +---------+ + + +--------+ + + | Problem | Postural | 729.90 | | | Active | 06200965 | | | imbalance | | | | | | +---------+ + + +--------+ + + | Problem | Carpal | 354.0 | | | Active | 97109619 | | | tunnel | | | | | | | | syndrome | | | | | | +---------+ + + +--------+ + + | Problem | History of | Z87.39 | | | Active | 723290424 | | | | | | | | | | | fibromyalg | | | | | | | | ia | | | | | | +---------+ + + +--------+ + + | Problem | Anxiety | F41.8 | | | Active | 923765314 | | | associated | | | | | | | | with | | | | | | | | depression | | | | | | +---------+ + + +--------+ + + | Problem | GERD | | K21.9 | | Active | 771502520 | | | (gastroeso | | | | | | | | phageal | | | | | | | | reflux | | | | | | | | disease) | | | | | | +---------+ + + +--------+ + + | Problem | PTSD | | F43.10 | | Active | 10007365 | | | (post-trau | | | | | | | | matic | | | | | | | | stress | | | | | | | | disorder) | | | | | | +---------+ + + +--------+ + + | Problem | Impingemen | 726.2 | | | Active | 6111172515 | | | t syndrome | | | | | 9744714 | | | of both | | | | | | | | shoulders | | | | | | +---------+ + + +--------+ + + | Problem | Sprain of | S93.419A | | | Active | 29816193 | | | calcaneofi | | | | | | | | bular | | | | | | | | ligament | | | | | | | | of ankle | | | | | | +---------+ + + +--------+ + + | Problem | Asthma | | J45.909 | | Active | 031629817 | +---------+ + + +--------+ + + [...]
--- OUTSIDE RECORDS SUMMARY | ~2017-08-15 | XMS ---
Demographics + + + | Address | [address] | | | [place] [address] | + + + | Preferred Language | Unknown | + + + | Marital Status | Unknown | + + + | Druze Affiliation | Unknown | + + + | Race | Unknown | + + + | Ethnic Group | Unknown | + + + Author + + + | Author | [facility] | + + + | Organization | [facility] | + + + | Address | [address] | | | [place] [address] | + + + | Phone | | + + + Care Team Providers + + + + | Care Lighting Engineer Name | Role | Phone | + + + + Unavailable | Unavailable | + + + + PROBLEMS +---------+ + + +--------+ + + | Type | Condition | ICD9-CM | ZXT42-VX | Onset | Condition | SNOMED | | | | Code | Code | Dates | Status | Code | +---------+ + + +--------+ + + | Problem | Carpal | 354.0 | | | Active | 84327702 | | | tunnel | | | | | | | | syndrome | | | | | | +---------+ + + +--------+ + + | Problem | Postural | 729.90 | | | Active | 66941075 | | | imbalance | | | | | | +---------+ + + +--------+ + + | Problem | Asthma | | J45.909 | | Active | 831792365 | +---------+ + + +--------+ + + | Problem | Impingemen | 726.2 | | | Active | 8276932992 | | | t syndrome | | | | | 5155678 | | | of both | | | | | | | | shoulders | | | | | | +---------+ + + +--------+ + + | Problem | GERD | | K21.9 | | Active | 966310534 | | | (gastroeso | | | | | | | | phageal | | | | | | | | reflux | | | | | | | | disease) | | | | | | +---------+ + + +--------+ + + | Problem | PTSD | | F43.10 | | Active | 06484682 | | | (post-trau | | | | | | | | matic | | | | | | | | stress | | | | | | | | disorder) | | | | | | +---------+ + + +--------+ + + | Problem | Sprain of | S93.419A | | | Active | 53210489 | | | calcaneofi | | | [...] | M51.27 | | | Active | 23405820 | | | nt of | | [...] | S09.93XA | | | Active | 81790631 | | | injury | | | | | | +---------+ + + +--------+ + + | Problem | Spondylosi | M47.816 | | | Active | 64886467 | | | s of | | | | | | | | lumbar | | | | | | | | joint | | | | | | +---------+ + + +--------+ + + | 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 | | | Active | 43625508 | | | (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 | | | | | | | | elial | | | | | | | | neoplasia | | | | | | | | III) | | | | | | +---------+ + + +--------+ + + | Problem | Rheumatoid | M06.079 | | | Active | 08224186 | | | arthritis | | | | | | | | involving | | | | | | | | ankle | | | | | | +---------+ + + +--------+ + + | Problem | Change in | L81.9 | | | Active | 04118735 | | | mole | | | | | | +---------+ + + +--------+ + + | Problem | Hypertensi | | I10 | | Active | 20150671 | | | on | | | | | | +---------+ + + +--------+ + + | Problem | Skin | L98.9 | | | Active | 51717238 | | | lesion | | | | | | +---------+ + + +--------+ + + | Problem | Encounter | Z01.89 | | | Active | 69622587 | | | for pain | | | | | | | | management | | | | | | | | planning | | | | | | +---------+ + + +--------+ + + | Problem | Encounter | Z71.89 | | | Active | 458495374 | | | for | | | [...] | M75.101 | | | Active | 5184955226 | | | right | | | | | 6972137 | | | rotator | | | [...] | M54.17 | | | Active | 0950487 | | | l | | | | | | | | radiculopa | | | | | | | | thy due to | | | | | | | | trauma | | | | | | +---------+ + + +--------+ + + | 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 | | | Active | 351322739 | | | athy, | | | | | | | | peripheral | | | | | | | | | | | | | | | | sensorimot | | | | | | | | or axonal | | | | | | +---------+ + + +--------+ + + | Problem | Fatigue | | R53.83 | | Active | 10364934 | +---------+ + + +--------+ + + | Problem | Hyperglyce | | R73.9 | | Active | 48827314 | | | emerald | | | | | | +---------+ + + +--------+ + + | Problem | Elevated | R68.89 | | | Active | 328002387 | | | laboratory | | | | | | | | test | | | | | | | | result | | | | | | +---------+ + + +--------+ + + | Problem | History of | Z87.39 | | | Active | 259693389 | | | | | | | | | | | rheumatoid | | | | | | | | arthritis | | | | | | +---------+ + + +--------+ + + | Problem | 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 | | | Active | 115125197 | | | peroneal | | | | | | | | mononeurop | | | | | | | | athy | | | | | | +---------+ + + +--------+ + + | Problem | History of | Z98.890 | | | Active | 763542072 | | | Holter | | | | | | | | monitoring | | | | | | +---------+ + + +--------+ + + | Problem | History of | Z87.39 | | | Active | 471393696 | | | | | | | | | | | fibromyalg | | | | | | | | ia | | | | | | +---------+ + + +--------+ + + | 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 | 95255572 | | | anomaly | | | | | | +---------+ + + +--------+ + + | Problem | Cervicalgi | | M54.2 | | Active | 00909890 | | | a | | | | | | +---------+ + + +--------+ + + | Problem | Other | | M47.12 | | Active | 59144644 | | | spondylosi | | | [...] | | E03.9 | | Active | 89767078 | | | dism | | | | | | +---------+ + + +--------+ + + | Problem | Eustachian | H69.80 | | | Active | 05992781 | | | tube | | | | | | | | dysfunctio | | | | | | | | n | | | | | | +---------+ + + +--------+ + + | Problem | Personal | | Z87.898 | | Active | 386707811 | | | history of | | | | | | | | other | | | | | | | | specified | | | | | | | | conditions | | | | | | +---------+ + + +--------+ + + | Problem | Other | | J30.2 | | Active | 844344235 | | | seasonal | | | | | | | | allergic | | | | | | | | rhinitis | | | | | | +---------+ + + +--------+ + + | Problem | H/O | Z98.890 | | | Active | 421015827 | | | cervical | | | | | | | | spine | | | | | | | | surgery | | | | | | +---------+ + + +--------+ + + | Problem | Syncope | R55 | | | Active | 047551497 | +---------+ + + +--------+ + + [...]
--- OUTSIDE RECORDS SUMMARY | ~2017-08-15 | XMS ---
Demographics + + + | Address | [address] | | | [place] [address] | + + + | Preferred Language | Unknown | + + + | Marital Status | Unknown | + + + | Anglican Affiliation | Unknown | + + + | Race | Unknown | + + + | Ethnic Group | Unknown | + + + Author + + + | Author | [facility] | + + + | Organization | [facility] | + + + | Address | [address] | | | [place] [address] | + + + | Phone | | + + + Care Team Providers + + + + | Care Insurance Account Manager Name | Role | Phone | + + + + Unavailable | Unavailable | + + + + PROBLEMS +---------+ + + +--------+ + + | Type | Condition | ICD9-CM | [id number] | Onset | Condition | SNOMED | | | | Code | Code | Dates | Status | Code | +---------+ + + +--------+ + + | Problem | Cervicalgi | | M54.2 | | Active | 91411481 | | | a | | | | | | +---------+ + + +--------+ + + | Problem | Hypothyroi | | E03.9 | | Active | 85721196 | | | dism | | | | | | +---------+ + + +--------+ + + | Problem | Rheumatoid | M06.079 | | | Active | 72788340 | | | arthritis | | | | | | | | involving | | | | | | | | ankle | | | | | | +---------+ + + +--------+ + + | Problem | 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 | | | Active | 389805344 | | | peroneal | | | | | | | | mononeurop | | | | | | | | athy | | | | | | +---------+ + + +--------+ + + | 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 | | | Active | 277544729 | | | athy, | | | [...] | Z87.39 | | | Active | 915180406 | | | | | | | | | | | fibromyalg | | | | | | | | ia | | | | | | +---------+ + + +--------+ + + | Problem | Lumbosacra | M54.17 | | | Active | 7673045 | | | l | | | | | | | | radiculopa | | | | | | | | thy due to | | | | | | | | trauma | | | | | | +---------+ + + +--------+ + + | Problem | Tear of | M75.101 | | | Active | 3615771705 | | | right | | | | | 8840447 | | | rotator | | | [...] | R29.3 | | | Active | 05504999 | | | imbalance | | | | | | +---------+ + + +--------+ + + | Problem | Syncope | R55 | | | Active | 201948569 | +---------+ + + +--------+ + + | Problem | H/O | Z98.890 | | | Active | 538856084 | | | cervical | | | | | | | | spine | | | | | | | | surgery | | | | | | +---------+ + + +--------+ + + | Problem | Carpal | 354.0 | | | Active | 01857096 | | | tunnel | | | | | | | | syndrome | | | | | | +---------+ + + +--------+ + + | Problem | Postural | 729.90 | | | Active | 39924919 | | | imbalance | | | | | | +---------+ + + +--------+ + + | Problem | Anxiety | F41.8 | | | Active | 083199725 | | | associated | | | | | | | | with | | | | | | | | depression | | | | | | +---------+ + + +--------+ + + | Problem | Other | | M47.12 | | Active | 72071589 | | | spondylosi | | | [...] | Q24.9 | | | Active | 39493407 | | | anomaly | | | | | | +---------+ + + +--------+ + + | Problem | History of | Z98.890 | | | Active | 373845574 | | | Holter | | | | | | | | monitoring | | | | | | +---------+ + + +--------+ + + | Problem | GERD | | K21.9 | | Active | 482578967 | | | (gastroeso | | | | | | | | phageal | | | | | | | | reflux | | | | | | | | disease) | | | | | | +---------+ + + +--------+ + + | Problem | PTSD | | F43.10 | | Active | 50946932 | | | (post-trau | | | | | | | | matic | | | | | | | | stress | | | | | | | | disorder) | | | | | | +---------+ + + +--------+ + + | Problem | Impingemen | 726.2 | | | Active | 7796073053 | | | t syndrome | | | | | 7425592 | | | of both | | | | | | | | shoulders | | | | | | +---------+ + + +--------+ + + | Problem | Asthma | | J45.909 | | Active | 796802773 | +---------+ + + +--------+ + + | Problem | Displaceme | M51.27 | | | Active | 94264094 | | | nt of | | [...] | M47.816 | | | Active | 55673210 | | | s of | | | | | | | | lumbar | | | | | | | | joint | | | | | | +---------+ + + +--------+ + + | Problem | Sprain of | S93.419A | | | Active | 20417836 | | | calcaneofi | | | [...]
--- OUTSIDE RECORDS SUMMARY | ~2017-08-15 | XMS ---
Demographics + + + | Address | [address] | | | [place] [address] | + + + | Preferred Language | Unknown | + + + | Marital Status | Unknown | + + + | Orthodox Affiliation | Unknown | + + + | Race | Unknown | + + + | Ethnic Group | Unknown | + + + Author + + + | Author | [facility] | + + + | Organization | [facility] | + + + | Address | [address] | | | [place] [address] | + + + | Phone | | + + + Care Team Providers + + + + | Care Waste Minimization Technician Name | Role | Phone | + + + + Unavailable | Unavailable | + + + + PROBLEMS +---------+ + + +--------+ + + | Type | Condition | ICD9-CM | [id number] | Onset | Condition | SNOMED | | | | Code | Code | Dates | Status | Code | +---------+ + + +--------+ + + | Problem | Hypothyroi | | E03.9 | | Active | 35822169 | | | dism | | | | | | +---------+ + + +--------+ + + | Problem | Cervicalgi | | M54.2 | | Active | 75388889 | | | a | | | | | | +---------+ + + +--------+ + + | Problem | History of | Z87.39 | | | Active | 939889400 | | | | | | | | | | | fibromyalg | | | | | | | | ia | | | | | | +---------+ + + +--------+ + + | Problem | 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 | | | Active | 655071266 | | | peroneal | | | | | | | | mononeurop | | | | | | | | athy | | | | | | +---------+ + + +--------+ + + | Problem | Postural | 729.90 | | | Active | 57046477 | | | imbalance | | | | | | +---------+ + + +--------+ + + | Problem | Carpal | 354.0 | | | Active | 12011110 | | | tunnel | | | | | | | | syndrome | | | | | | +---------+ + + +--------+ + + | Problem | Impingemen | 726.2 | | | Active | 3526335932 | | | t syndrome | | | | | 8945101 | | | of both | | | | | | | | shoulders | | | | | | +---------+ + + +--------+ + + | Problem | Asthma | | J45.909 | | Active | 958267603 | +---------+ + + +--------+ + + | Problem | GERD | | K21.9 | | Active | 951370125 | | | (gastroeso | | | | | | | | phageal | | | | | | | | reflux | | | | | | | | disease) | | | | | | +---------+ + + +--------+ + + | Problem | H/O | Z98.890 | | | Active | 325166352 | | | cervical | | | | | | | | spine | | | | | | | | surgery | | | | | | +---------+ + + +--------+ + + | Problem | PTSD | | F43.10 | | Active | 80189936 | | | (post-trau | | | | | | | | matic | | | | | | | | stress | | | | | | | | disorder) | | | | | | +---------+ + + +--------+ + + | Problem | Syncope | R55 | | | Active | 232591536 | +---------+ + + +--------+ + + | Problem | Sprain of | S93.419A | | | Active | 64980788 | | | calcaneofi | | | | | | | | bular | | | | | | | | ligament | | | | | | | | of ankle | | | | | | +---------+ + + +--------+ + + | Problem | Personal | | Z87.898 | | Active | 748526110 | | | history of | | | | | | | | other | | | | | | | | specified | | | | | | | | conditions | | | | | | +---------+ + + +--------+ + + | Problem | Dental | S09.93XA | | | Active | 78629576 | | | injury | | | | | | +---------+ + + +--------+ + + | Problem | Other | | J30.2 | | Active | 376459223 | | | seasonal | | | | | | | | allergic | | | | | | | | rhinitis | | | | | | +---------+ + + +--------+ + + | Problem | Fatigue | | R53.83 | | Active | 15540129 | +---------+ + + +--------+ + + | Problem | Hyperglyce | | R73.9 | | Active | 62162221 | | | emerald | | | | | | +---------+ + + +--------+ + + | Problem | Spondylosi | M47.816 | | | Active | 48806390 | | | s of | | | | | | | | lumbar | | | | | | | | joint | | | | | | +---------+ + + +--------+ + + | Problem | Displaceme | M51.27 | | | Active | 94406873 | | | nt of | | [...] | L81.9 | | | Active | 25894292 | | | mole | | | | | | +---------+ + + +--------+ + + | Problem | SOHA III | D07.1 | | | Active | 10453965 | | | (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 | | | | | | | | elial | | | | | | | | neoplasia | | | | | | | | III) | | | | | | +---------+ + + +--------+ + + | Problem | Hypertensi | | I10 | | Active | 22631905 | | | on | | | | | | +---------+ + + +--------+ + + | Problem | Skin | L98.9 | | | Active | 91521357 | | | lesion | | | | | | +---------+ + + +--------+ + + | Problem | Lumbosacra | M54.17 | | | Active | 7979461 | | | l | | | | | | | | radiculopa | | | | | | | | thy due to | | | | | | | | trauma | | | | | | +---------+ + + +--------+ + + | Problem | Tear of | M75.101 | | | Active | 8245140463 | | | right | | | | | 1857909 | | | rotator | | | [...] | M06.079 | | | Active | 66280460 | | | arthritis | | | | | | | | involving | | | | | | | | ankle | | | | | | +---------+ + + +--------+ + + | 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 | | | Active | [id number] | | | athy, | | | [...] | Z98.890 | | | Active | [id number] | | | Holter | | | | | | | | monitoring | | | | | | +---------+ + + +--------+ + + | 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 | [id number] | | | anomaly | | | | | | +---------+ + + +--------+ + + | Problem | Other | | M47.12 | | Active | [id number] | | | spondylosi | | | [...] | H69.80 | | | Active | [id number] | | | tube | | | [...]
--- OUTSIDE RECORDS SUMMARY | ~2017-08-15 | XMS ---
Demographics + + + | Address | [address] | | | [place] [address] | + + + | Preferred Language | Unknown | + + + | Marital Status | Unknown | + + + | Latter-Day Affiliation | Unknown | + + + | Race | Unknown | + + + | Ethnic Group | Unknown | + + + Author + + + | Author | [facility] | + + + | Organization | [facility] | + + + | Address | [address] | | | [place] [address] | + + + | Phone | | + + + Care Team Providers + + + + | Care Drafter [employer]otive Design Name | Role | Phone | + + + + Unavailable | Unavailable | + + + + PROBLEMS +---------+ + + +--------+ + + | Type | Condition | ICD9-CM | [id number] | Onset | Condition | SNOMED | | | | Code | Code | Dates | Status | Code | +---------+ + + +--------+ + + | Problem | 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 | | | Active | 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 | | | peroneal | | | | | | | | mononeurop | | | | | | | | athy | | | | | | +---------+ + + +--------+ + + | Problem | Hypothyroi | | E03.9 | | Active | 26603534 | | | dism | | | | | | +---------+ + + +--------+ + + | Problem | Postural | 729.90 | | | Active | 84607949 | | | imbalance | | | | | | +---------+ + + +--------+ + + | Problem | History of | Z87.39 | | | Active | 272081717 | | | | | | | | | | | fibromyalg | | | | | | | | ia | | | | | | +---------+ + + +--------+ + + | Problem | Carpal | 354.0 | | | Active | 06385326 | | | tunnel | | | | | | | | syndrome | | | | | | +---------+ + + +--------+ + + | Problem | Impingemen | 726.2 | | | Active | 0709585927 | | | t syndrome | | | | | 0508211 | | | of both | | | | | | | | shoulders | | | | | | +---------+ + + +--------+ + + | Problem | Asthma | | J45.909 | | Active | 487633586 | +---------+ + + +--------+ + + | Problem | GERD | | K21.9 | | Active | 079705081 | | | (gastroeso | | | | | | | | phageal | | | | | | | | reflux | | | | | | | | disease) | | | | | | +---------+ + + +--------+ + + | Problem | PTSD | | F43.10 | | Active | 04879918 | | | (post-trau | | | | | | | | matic | | | | | | | | stress | | | | | | | | disorder) | | | | | | +---------+ + + +--------+ + + | Problem | Syncope | R55 | | | Active | 121314895 | +---------+ + + +--------+ + + | Problem | Sprain of | S93.419A | | | Active | 79358506 | | | calcaneofi | | | | | | | | bular | | | | | | | | ligament | | | | | | | | of ankle | | | | | | +---------+ + + +--------+ + + | Problem | Personal | | Z87.898 | | Active | 147694209 | | | history of | | [...] | | J30.2 | | Active | 545962083 | | | seasonal | | | | | | | | allergic | | | | | | | | rhinitis | | | | | | +---------+ + + +--------+ + + | 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 | | | | | | | | III) | | | | | | +---------+ + + +--------+ + + | Problem | Dental | S09.93XA | | | Active | 54660794 | | | injury | | | | | | +---------+ + + +--------+ + + | Problem | Encounter | Z71.89 | | | Active | 292214761 | | | for | | | | | | | | medication | | | | | | | | review | | | | | | | | and | | | | | | | | counseling | | | | | | +---------+ + + +--------+ + + | Problem | Fatigue | | R53.83 | | Active | 93834969 | +---------+ + + +--------+ + + | Problem | Rheumatoid | M06.079 | | | Active | 79488809 | | | arthritis | | | | | | | | involving | | | | | | | | ankle | | | | | | +---------+ + + +--------+ + + | Problem | Spondylosi | M47.816 | | | Active | 60311656 | | | s of | | | | | | | | lumbar | | | | | | | | joint | | | | | | +---------+ + + +--------+ + + | Problem | Displaceme | M51.27 | | | Active | 86385097 | | | nt of | | [...] | L98.9 | | | Active | 92063940 | | | lesion | | | | | | +---------+ + + +--------+ + + | Problem | Change in | L81.9 | | | Active | 88358127 | | | mole | | | | | | +---------+ + + +--------+ + + | Problem | Hyperglyce | | R73.9 | | Active | 36202152 | | | emerald | | | | | | +---------+ + + +--------+ + + | Problem | Hypertensi | | I10 | | Active | 97670800 | | | on | | | | | | +---------+ + + +--------+ + + | Problem | Tear of | M75.101 | | | Active | 1338227506 | | | right | | | | | 8779267 | | | rotator | | | [...] | | M54.2 | | Active | 74699780 | | | a | | | | | | +---------+ + + +--------+ + + | Problem | Other | | M47.12 | | Active | 29389334 | | | spondylosi | | | [...] | G60.8 | | | Active | 416250682 | | | athy, | | | | | | | | peripheral | | | | | | | | | | | | | | | | sensorimot | | | | | | | | or axonal | | | | | | +---------+ + + +--------+ + + | Problem | Lumbosacra | M54.17 | | | Active | 5030265 | | | l | | | | | | | | radiculopa | | | | | | | | thy due to | | | | | | | | trauma | | | | | | +---------+ + + +--------+ + + | 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 | 23811248 | | | anomaly | | | | | | +---------+ + + +--------+ + + | Problem | H/O | Z98.890 | | | Active | 821492959 | | | cervical | | | | | | | | spine | | | | | | | | surgery | | | | | | +---------+ + + +--------+ + + | Problem | Eustachian | H69.80 | | | Active | 90899116 | | | tube | | | | | | | | dysfunctio | | | | | | | | n | | | | | | +---------+ + + +--------+ + + | Problem | History of | Z98.890 | | | Active | 800863574 | | | Holter | | | [...] | + + + + +--------+ | Darkerwincet-N 52 | anaphylaxis | Drug Allergy | [...] She | | | | moved from [place] in 09/06 | | | | and [...]
--- OUTSIDE RECORDS SUMMARY | ~2017-08-15 | XMS ---
Demographics + + + | Address | [address] | | | [place] [address] | + + + | Preferred Language | Unknown | + + + | Marital Status | Unknown | + + + | Mandaen Affiliation | Unknown | + + + | Race | Unknown | + + + | Ethnic Group | Unknown | + + + Author + + + | Author | [facility] | + + + | Organization | [facility] | + + + | Address | [address] | | | [place] [address] | + + + | Phone | | + + + Care Team Providers + + + + | Care Staff Midwife/Apprenticeship Director Name | Role | Phone | + + + + Unavailable | Unavailable | + + + + PROBLEMS +---------+ + + +--------+ + + | Type | Condition | ICD9-CM | UCQ38-UJ | Onset | Condition | SNOMED | | | | Code | Code | Dates | Status | Code | +---------+ + + +--------+ + + | Problem | Cervicalgi | | M54.2 | | Active | 13207656 | | | a | | | | | | +---------+ + + +--------+ + + | Problem | Hypothyroi | | E03.9 | | Active | 52747294 | | | dism | | | | | | +---------+ + + +--------+ + + | Problem | Rheumatoid | M06.079 | | | Active | 49941469 | | | arthritis | | | | | | | | involving | | | | | | | | ankle | | | | | | +---------+ + + +--------+ + + | Problem | 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 | | | Active | 991499576 | | | peroneal | | | | | | | | mononeurop | | | | | | | | athy | | | | | | +---------+ + + +--------+ + + | 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 | | | Active | 170180020 | | | athy, | | | [...] | Z87.39 | | | Active | 001690618 | | | | | | | | | | | fibromyalg | | | | | | | | ia | | | | | | +---------+ + + +--------+ + + | Problem | Lumbosacra | M54.17 | | | Active | 9754969 | | | l | | | | | | | | radiculopa | | | | | | | | thy due to | | | | | | | | trauma | | | | | | +---------+ + + +--------+ + + | Problem | Tear of | M75.101 | | | Active | 1692512859 | | | right | | | | | 8820268 | | | rotator | | | [...] | R29.3 | | | Active | 93964057 | | | imbalance | | | | | | +---------+ + + +--------+ + + | Problem | Syncope | R55 | | | Active | 081080631 | +---------+ + + +--------+ + + | Problem | H/O | Z98.890 | | | Active | 552478252 | | | cervical | | | | | | | | spine | | | | | | | | surgery | | | | | | +---------+ + + +--------+ + + | Problem | Carpal | 354.0 | | | Active | 92565376 | | | tunnel | | | | | | | | syndrome | | | | | | +---------+ + + +--------+ + + | Problem | Postural | 729.90 | | | Active | 48292035 | | | imbalance | | | | | | +---------+ + + +--------+ + + | Problem | Anxiety | F41.8 | | | Active | 123141235 | | | associated | | | | | | | | with | | | | | | | | depression | | | | | | +---------+ + + +--------+ + + | Problem | Other | | M47.12 | | Active | 02714839 | | | spondylosi | | | [...] | Q24.9 | | | Active | 23272419 | | | anomaly | | | | | | +---------+ + + +--------+ + + | Problem | History of | Z98.890 | | | Active | 139624096 | | | Holter | | | | | | | | monitoring | | | | | | +---------+ + + +--------+ + + | Problem | GERD | | K21.9 | | Active | 949825845 | | | (gastroeso | | | | | | | | phageal | | | | | | | | reflux | | | | | | | | disease) | | | | | | +---------+ + + +--------+ + + | Problem | PTSD | | F43.10 | | Active | 44332967 | | | (post-trau | | | | | | | | matic | | | | | | | | stress | | | | | | | | disorder) | | | | | | +---------+ + + +--------+ + + | Problem | Impingemen | 726.2 | | | Active | 5783773858 | | | t syndrome | | | | | 6789611 | | | of both | | | | | | | | shoulders | | | | | | +---------+ + + +--------+ + + | Problem | Asthma | | J45.909 | | Active | 779499056 | +---------+ + + +--------+ + + | Problem | Displaceme | M51.27 | | | Active | 78427968 | | | nt of | | [...] | M47.816 | | | Active | 91564730 | | | s of | | | | | | | | lumbar | | | | | | | | joint | | | | | | +---------+ + + +--------+ + + | Problem | Sprain of | S93.419A | | | Active | 28253375 | | | calcaneofi | | | [...] | + + + + +--------+ | Oksanat-N 52 | anaphylaxis | Drug Allergy | [...] | 1 tab | 12h | 20 Feb, | | 30 | Active | | [...]
--- OUTSIDE RECORDS SUMMARY | ~2017-08-15 | XMS ---
Demographics + + + | Address | [address] | | | [place] [address] | + + + | Preferred Language | Unknown | + + + | Marital Status | Unknown | + + + | Taoist Affiliation | Unknown | + + + | Race | Unknown | + + + | Ethnic Group | Unknown | + + + Author + + + | Author | [facility] | + + + | Organization | [facility] | + + + | Address | [address] | | | [place] [address] | + + + | Phone | | + + + Care Team Providers + + + + | Care Loftsman Name | Role | Phone | + + + + Unavailable | Unavailable | + + + + PROBLEMS +---------+ + + +--------+ + + | Type | Condition | ICD9-CM | [id number] | Onset | Condition | SNOMED | | | | Code | Code | Dates | Status | Code | +---------+ + + +--------+ + + | Problem | Displaceme | M51.27 | | | Active | 82471433 | | | nt of | | [...] | M06.079 | | | Active | 88879178 | | | arthritis | | | | | | | | involving | | | | | | | | ankle | | | | | | +---------+ + + +--------+ + + | Problem | Spondylosi | M47.816 | | | Active | 77228528 | | | s of | | | | | | | | lumbar | | | | | | | | joint | | | | | | +---------+ + + +--------+ + + | Problem | Other | | M47.12 | | Active | 99283889 | | | spondylosi | | | [...] | G57.32 | | | Active | 488580866 | | | peroneal | | | [...] | | E03.9 | | Active | 91065976 | | | dism | | | | | | +---------+ + + +--------+ + + | Problem | Cervicalgi | | M54.2 | | Active | 29731353 | | | a | | | | | | +---------+ + + +--------+ + + | Problem | Lumbosacra | M54.17 | | | Active | 0516324 | | | l | | | | | | | | radiculopa | | | | | | | | thy due to | | | | | | | | trauma | | | | | | +---------+ + + +--------+ + + | 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 | | | Active | 587672806 | | | athy, | | | [...] | M75.101 | | | Active | 9141398475 | | | right | | | | | 5690209 | | | rotator | | | [...] | R29.3 | | | Active | 43279009 | | | imbalance | | | | | | +---------+ + + +--------+ + + | Problem | Postural | 729.90 | | | Active | 35922157 | | | imbalance | | | | | | +---------+ + + +--------+ + + | Problem | Carpal | 354.0 | | | Active | 18809546 | | | tunnel | | | | | | | | syndrome | | | | | | +---------+ + + +--------+ + + | Problem | History of | Z87.39 | | | Active | 050555667 | | | | | | | | | | | fibromyalg | | | | | | | | ia | | | | | | +---------+ + + +--------+ + + | Problem | Anxiety | F41.8 | | | Active | 329437197 | | | associated | | | | | | | | with | | | | | | | | depression | | | | | | +---------+ + + +--------+ + + | Problem | GERD | | K21.9 | | Active | 585202242 | | | (gastroeso | | | | | | | | phageal | | | | | | | | reflux | | | | | | | | disease) | | | | | | +---------+ + + +--------+ + + | Problem | PTSD | | F43.10 | | Active | 91694971 | | | (post-trau | | | | | | | | matic | | | | | | | | stress | | | | | | | | disorder) | | | | | | +---------+ + + +--------+ + + | Problem | Impingemen | 726.2 | | | Active | 9669857566 | | | t syndrome | | | | | 5460033 | | | of both | | | | | | | | shoulders | | | | | | +---------+ + + +--------+ + + | Problem | Sprain of | S93.419A | | | Active | 32437652 | | | calcaneofi | | | | | | | | bular | | | | | | | | ligament | | | | | | | | of ankle | | | | | | +---------+ + + +--------+ + + | Problem | Asthma | | J45.909 | | Active | 247099616 | +---------+ + + +--------+ + + [...] Tylox | anaphylaxis | Drug Allergy | Mar, | Active | + + + + +--------+ | Tramadol HCl | anaphylaxis | Drug Allergy | Mar, | Active | + + + + +--------+ | Percocet | anaphylaxis | Drug Allergy | Mar, | Active | + + + + +--------+ | OxyContin | anaphylaxis | Drug Allergy | Mar, | Active | + + + + +--------+ | Oxycodone-Aceta | anaphylaxis | Drug Allergy | Mar, | Active | | minophen | | | | | + + + + +--------+ | Morphine | anaphylaxis | Drug Allergy | Mar, | Active | | Sulfate | | | | | + + + + +--------+ | Lortab | anaphylaxis | Drug Allergy | Mar, | Active | + + + + +--------+ | Codeine | anaphylaxis | Drug Allergy | Mar, | Active | + + + + +--------+ | Hydrocodone-Brannon | anaphylaxis | Drug Allergy | Mar, | Active | | taminophen | | | | | + + + + +--------+ | Vicodin | anaphylaxis | Drug Allergy | Mar, | Active | + + + + +--------+ | Guaifenesin | Unknown | Drug Allergy | Mar, | Active | + + + + +--------+ | Darvocet-N 50 | anaphylaxis | Drug Allergy | Mar, | Active | + + + + +--------+ | Augmentin | shortness of | Drug Allergy | Mar, | Active | | | breath | | | | + + + + +--------+ SOCIAL HISTORY No smoking Hx information available PLAN OF CARE + +---------+ | Activity | Details | + +---------+ +---+ | | +---+ + + + | Follow Up | 4 Weeks, 6 Weeks, prn Reason:null | + + + VITAL SIGNS + + + + | Height | 69 in | 2017-03-27 | + + + + | Weight | 253.6 lbs | 2017-03-27 | + + + + | BMI | 37.45 kg/m2 | 2017-03-27 | + + + + | Temperature | 96.6 degrees Fahrenheit | 2017-03-27 | + + + + | Heart Rate | 96 /min | 2017-03-27 | + + + + | Blood pressure systolic | 113 mm Hg | 2017-03-27 | + + + + | Blood pressure diastolic | 66 mm Hg | 2017-03-27 | + + + + MEDICATIONS + [...] | Injectio | as | | 11 Dec, | | 1 | Active | | [...] | 1 puffs | 4h | 29 Feb, | | 1 month | Active [...] | + + + + + | TDAP >7, IM | March 27, 2017 | | | + + + + + | IMMUNIZATION ADMIN | March 27, 2017 | | | + + + + + | Est Level IV | March 27, 2017 | | | | Extended | | | | + + + + + IMMUNIZATIONS + + + + + | Vaccine | Route | Administration Date | Status | + + + + + | TDAP >7, IM | IM Intramuscular | March 27, 2017 | Administered | + + + + +"
--- OUTSIDE RECORDS SUMMARY | ~2017-08-15 | XMS ---
Demographics + + + | Address | [address] | | | [place] [address] | + + + | Preferred Language | Unknown | + + + | Marital Status | Unknown | + + + | Restoration Affiliation | Unknown | + + + | Race | Unknown | + + + | Ethnic Group | Unknown | + + + Author + + + | Author | [facility] | + + + | Organization | [facility] | + + + | Address | [address] | | | [place] [address] | + + + | Phone | [phone] | + + + Care Team Providers + + + + | Care Health And Physical Education Professor Name | Role | Phone | + + + + Unavailable | Unavailable | + + + + PROBLEMS +---------+ + + +--------+ + + | Type | Condition | ICD9-CM | [id number] | Onset | Condition | SNOMED | | | | Code | Code | Dates | Status | Code | +---------+ + + +--------+ + + | Problem | Carpal | 354.0 | | | Active | 62847124 | | | tunnel | | | | | | | | syndrome | | | | | | +---------+ + + +--------+ + + | Problem | Postural | 729.90 | | | Active | 14899374 | | | imbalance | | | | | | +---------+ + + +--------+ + + | Problem | Asthma | | J45.909 | | Active | 972247800 | +---------+ + + +--------+ + + | Problem | Impingemen | 726.2 | | | Active | 5567883073 | | | t syndrome | | | | | 7704756 | | | of both | | | | | | | | shoulders | | | | | | +---------+ + + +--------+ + + | Problem | GERD | | K21.9 | | Active | 396402334 | | | (gastroeso | | | | | | | | phageal | | | | | | | | reflux | | | | | | | | disease) | | | | | | +---------+ + + +--------+ + + | Problem | PTSD | | F43.10 | | Active | 56969067 | | | (post-trau | | | | | | | | matic | | | | | | | | stress | | | | | | | | disorder) | | | | | | +---------+ + + +--------+ + + | Problem | Sprain of | S93.419A | | | Active | 55329333 | | | calcaneofi | | | [...] | M51.27 | | | Active | 04837648 | | | nt of | | [...] | S09.93XA | | | Active | 05827468 | | | injury | | | | | | +---------+ + + +--------+ + + | Problem | Spondylosi | M47.816 | | | Active | 49300607 | | | s of | | | | | | | | lumbar | | | | | | | | joint | | | | | | +---------+ + + +--------+ + + | 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 | | | Active | 02362240 | | | (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 | | | | | | | | elial | | | | | | | | neoplasia | | | | | | | | III) | | | | | | +---------+ + + +--------+ + + | Problem | Rheumatoid | M06.079 | | | Active | 35458701 | | | arthritis | | | | | | | | involving | | | | | | | | ankle | | | | | | +---------+ + + +--------+ + + | Problem | Change in | L81.9 | | | Active | 29315939 | | | mole | | | | | | +---------+ + + +--------+ + + | Problem | Hypertensi | | I10 | | Active | 05280865 | | | on | | | | | | +---------+ + + +--------+ + + | Problem | Skin | L98.9 | | | Active | 25642365 | | | lesion | | | | | | +---------+ + + +--------+ + + | Problem | Encounter | Z01.89 | | | Active | 52896903 | | | for pain | | | | | | | | management | | | | | | | | planning | | | | | | +---------+ + + +--------+ + + | Problem | Encounter | Z71.89 | | | Active | 764916335 | | | for | | | [...] | M75.101 | | | Active | 5442756361 | | | right | | | | | 0047631 | | | rotator | | | [...] | M54.17 | | | Active | 0663862 | | | l | | | | | | | | radiculopa | | | | | | | | thy due to | | | | | | | | trauma | | | | | | +---------+ + + +--------+ + + | 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 | | | Active | 959234668 | | | athy, | | | | | | | | peripheral | | | | | | | | | | | | | | | | sensorimot | | | | | | | | or axonal | | | | | | +---------+ + + +--------+ + + | Problem | Fatigue | | R53.83 | | Active | 69481293 | +---------+ + + +--------+ + + | Problem | Hyperglyce | | R73.9 | | Active | 13889845 | | | emerald | | | | | | +---------+ + + +--------+ + + | Problem | Elevated | R68.89 | | | Active | 772917179 | | | laboratory | | | | | | | | test | | | | | | | | result | | | | | | +---------+ + + +--------+ + + | Problem | History of | Z87.39 | | | Active | 325186147 | | | | | | | | | | | rheumatoid | | | | | | | | arthritis | | | | | | +---------+ + + +--------+ + + | Problem | 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 | | | Active | 555309312 | | | peroneal | | | | | | | | mononeurop | | | | | | | | athy | | | | | | +---------+ + + +--------+ + + | Problem | History of | Z98.890 | | | Active | 115221221 | | | Holter | | | | | | | | monitoring | | | | | | +---------+ + + +--------+ + + | Problem | History of | Z87.39 | | | Active | 342492227 | | | | | | | | | | | fibromyalg | | | | | | | | ia | | | | | | +---------+ + + +--------+ + + | 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 | 72935576 | | | anomaly | | | | | | +---------+ + + +--------+ + + | Problem | Cervicalgi | | M54.2 | | Active | 55799633 | | | a | | | | | | +---------+ + + +--------+ + + | Problem | Other | | M47.12 | | Active | 88500872 | | | spondylosi | | | [...] | | E03.9 | | Active | 57107619 | | | dism | | | | | | +---------+ + + +--------+ + + | Problem | Eustachian | H69.80 | | | Active | 03956750 | | | tube | | | | | | | | dysfunctio | | | | | | | | n | | | | | | +---------+ + + +--------+ + + | Problem | Personal | | Z87.898 | | Active | 065033016 | | | history of | | | | | | | | other | | | | | | | | specified | | | | | | | | conditions | | | | | | +---------+ + + +--------+ + + | Problem | Other | | J30.2 | | Active | 836797509 | | | seasonal | | | | | | | | allergic | | | | | | | | rhinitis | | | | | | +---------+ + + +--------+ + + | Problem | H/O | Z98.890 | | | Active | 213833721 | | | cervical | | | | | | | | spine | | | | | | | | surgery | | | | | | +---------+ + + +--------+ + + | Problem | Syncope | R55 | | | Active | 084722029 | +---------+ + + +--------+ + + [...] | + + + + +--------+ | Bart-N 50 | anaphylaxis | Drug Allergy | [...] She | | | | moved from [place] in 09/06 | | | | and [...]
--- OUTSIDE RECORDS SUMMARY | ~2017-08-15 | XMS ---
Demographics + + + | Address | [address] | | | [place] [address] | + + + | Preferred Language | Unknown | + + + | Marital Status | Unknown | + + + | Evangelical Affiliation | Unknown | + + + | Race | Unknown | + + + | Ethnic Group | Unknown | + + + Author + + + | Author | [facility] | + + + | Organization | [facility] | + + + | Address | [address] | | | [place] [address] | + + + | Phone | | + + + Care Team Providers + + + + | Care Barrel Lapper Name | Role | Phone | + + + + Unavailable | Unavailable | + + + + PROBLEMS +---------+ + + +--------+ + + | Type | Condition | ICD9-CM | [id number] | Onset | Condition | SNOMED | | | | Code | Code | Dates | Status | Code | +---------+ + + +--------+ + + | Problem | Hypothyroi | | E03.9 | | Active | 32972331 | | | dism | | | | | | +---------+ + + +--------+ + + | Problem | Cervicalgi | | M54.2 | | Active | 58973942 | | | a | | | | | | +---------+ + + +--------+ + + | Problem | 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 | | | Active | 916684177 | | | peroneal | | | | | | | | mononeurop | | | | | | | | athy | | | | | | +---------+ + + +--------+ + + | Problem | History of | Z87.39 | | | Active | 560781826 | | | | | | | | | | | fibromyalg | | | | | | | | ia | | | | | | +---------+ + + +--------+ + + | Problem | Anxiety | F41.8 | | | Active | 675246203 | | | associated | | | | | | | | with | | | | | | | | depression | | | | | | +---------+ + + +--------+ + + | Problem | Postural | 729.90 | | | Active | 73915101 | | | imbalance | | | | | | +---------+ + + +--------+ + + | Problem | Carpal | 354.0 | | | Active | 84003495 | | | tunnel | | | | | | | | syndrome | | | | | | +---------+ + + +--------+ + + | Problem | Medication | T88.7XXA | | | Active | | | | reaction | | | | | | +---------+ + + +--------+ + + | Problem | Impingemen | 726.2 | | | Active | 2116382565 | | | t syndrome | | | | | 7141796 | | | of both | | | | | | | | shoulders | | | | | | +---------+ + + +--------+ + + | Problem | Other | | M47.12 | | Active | 76621338 | | | spondylosi | | | [...] | | J45.909 | | Active | 531948565 | +---------+ + + +--------+ + + | Problem | Alopecia | L65.9 | | | Active | 25015805 | +---------+ + + +--------+ + + | Problem | History of | Z98.890 | | | Active | 589684019 | | | Holter | | | | | | | | monitoring | | | | | | +---------+ + + +--------+ + + | Problem | Eustachian | H69.80 | | | Active | 98223397 | | | tube | | | | | | | | dysfunctio | | | | | | | | n | | | | | | +---------+ + + +--------+ + + | Problem | Nasal | | R09.81 | | Active | 96376637 | | | congestion | | | | | | +---------+ + + +--------+ + + | Problem | Other | | J30.2 | | Active | 020036947 | | | seasonal | | | | | | | | allergic | | | | | | | | rhinitis | | | | | | +---------+ + + +--------+ + + | Problem | Sprain of | S93.419A | | | Active | 69340473 | | | calcaneofi | | | | | | | | bular | | | | | | | | ligament | | | | | | | | of ankle | | | | | | +---------+ + + +--------+ + + | Problem | PTSD | | F43.10 | | Active | 39317123 | | | (post-trau | | | | | | | | matic | | | | | | | | stress | | | | | | | | disorder) | | | | | | +---------+ + + +--------+ + + | Problem | GERD | | K21.9 | | Active | 037496860 | | | (gastroeso | | | | | | | | phageal | | | | | | | | reflux | | | | | | | | disease) | | | | | | +---------+ + + +--------+ + + | Problem | H/O | Z98.890 | | | Active | 340503968 | | | cervical | | | | | | | | spine | | | | | | | | surgery | | | | | | +---------+ + + +--------+ + + | 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 | 60980280 | | | anomaly | | | | | | +---------+ + + +--------+ + + | Problem | Personal | | Z87.898 | | Active | 790054827 | | | history of | | | | | | | | other | | | | | | | | specified | | | | | | | | conditions | | | | | | +---------+ + + +--------+ + + | Problem | Syncope | R55 | | | Active | 488388312 | +---------+ + + +--------+ + + | Problem | Spondylosi | M47.816 | | | Active | 52682116 | | | s of | | | | | | | | lumbar | | | | | | | | joint | | | | | | +---------+ + + +--------+ + + | Problem | Rheumatoid | M06.079 | | | Active | 56369314 | | | arthritis | | | [...] | M51.27 | | | Active | 86447609 | | | nt of | | [...] | R29.3 | | | Active | 07119578 | | | imbalance | | | | | | +---------+ + + +--------+ + + | Problem | Tear of | M75.101 | | | Active | 4975882232 | | | right | | | | | 4015117 | | | rotator | | | [...] | G60.8 | | | Active | 190652802 | | | athy, | | | | | | | | peripheral | | | | | | | | | | | | | | | | sensorimot | | | | | | | | or axonal | | | | | | +---------+ + + +--------+ + + | Problem | Lumbosacra | M54.17 | | | Active | 6732989 | | | l | | | [...]
--- OUTSIDE RECORDS SUMMARY | ~2017-08-15 | XMS ---
Demographics + + + | Address | [address] | | | [place] [address] | + + + | Preferred Language | Unknown | + + + | Marital Status | Unknown | + + + | Episcopal Affiliation | Unknown | + + + | Race | Unknown | + + + | Ethnic Group | Unknown | + + + Author + + + | Author | [facility] | + + + | Organization | [facility] | + + + | Address | [address] | | | [place] [address] | + + + | Phone | | + + + Care Team Providers + + + + | Care Food Processing Scientist Name | Role | Phone | + + + + Unavailable | Unavailable | + + + + PROBLEMS +---------+ + + +--------+ + + | Type | Condition | ICD9-CM | [id number] | Onset | Condition | SNOMED | | | | Code | Code | Dates | Status | Code | +---------+ + + +--------+ + + | Problem | Displaceme | M51.27 | | | Active | 12665834 | | | nt of | | [...] | M06.079 | | | Active | 48014966 | | | arthritis | | | | | | | | involving | | | | | | | | ankle | | | | | | +---------+ + + +--------+ + + | Problem | Spondylosi | M47.816 | | | Active | 56437579 | | | s of | | | | | | | | lumbar | | | | | | | | joint | | | | | | +---------+ + + +--------+ + + | Problem | Other | | M47.12 | | Active | 31538412 | | | spondylosi | | | [...] | G57.32 | | | Active | 177416525 | | | peroneal | | | [...] | | E03.9 | | Active | 09812527 | | | dism | | | | | | +---------+ + + +--------+ + + | Problem | Cervicalgi | | M54.2 | | Active | 76679820 | | | a | | | | | | +---------+ + + +--------+ + + | Problem | Lumbosacra | M54.17 | | | Active | 9264284 | | | l | | | | | | | | radiculopa | | | | | | | | thy due to | | | | | | | | trauma | | | | | | +---------+ + + +--------+ + + | 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 | | | Active | 390828824 | | | athy, | | | [...] | M75.101 | | | Active | 6604770194 | | | right | | | | | 1226168 | | | rotator | | | [...] | R29.3 | | | Active | 19750192 | | | imbalance | | | | | | +---------+ + + +--------+ + + | Problem | Postural | 729.90 | | | Active | 24042596 | | | imbalance | | | | | | +---------+ + + +--------+ + + | Problem | Carpal | 354.0 | | | Active | 56272015 | | | tunnel | | | | | | | | syndrome | | | | | | +---------+ + + +--------+ + + | Problem | History of | Z87.39 | | | Active | 727556496 | | | | | | | | | | | fibromyalg | | | | | | | | ia | | | | | | +---------+ + + +--------+ + + | Problem | Anxiety | F41.8 | | | Active | 402501869 | | | associated | | | | | | | | with | | | | | | | | depression | | | | | | +---------+ + + +--------+ + + | Problem | GERD | | K21.9 | | Active | 193682045 | | | (gastroeso | | | | | | | | phageal | | | | | | | | reflux | | | | | | | | disease) | | | | | | +---------+ + + +--------+ + + | Problem | PTSD | | F43.10 | | Active | 29335060 | | | (post-trau | | | | | | | | matic | | | | | | | | stress | | | | | | | | disorder) | | | | | | +---------+ + + +--------+ + + | Problem | Impingemen | 726.2 | | | Active | 0407318467 | | | t syndrome | | | | | 7259754 | | | of both | | | | | | | | shoulders | | | | | | +---------+ + + +--------+ + + | Problem | Sprain of | S93.419A | | | Active | 95492431 | | | calcaneofi | | | | | | | | bular | | | | | | | | ligament | | | | | | | | of ankle | | | | | | +---------+ + + +--------+ + + | Problem | Asthma | | J45.909 | | Active | 227349114 | +---------+ + + +--------+ + + [...]
--- OUTSIDE RECORDS SUMMARY | ~2017-08-15 | XMS ---
Demographics + + + | Address | [address] | | | [place] [address] | + + + | Preferred Language | Unknown | + + + | Marital Status | Unknown | + + + | Hoahaoism Affiliation | Unknown | + + + | Race | Unknown | + + + | Ethnic Group | Unknown | + + + Author + + + | Author | [facility] | + + + | Organization | [facility] | + + + | Address | [address] | | | [place] [address] | + + + | Phone | | + + + Care Team Providers + + + + | Care Blending Plant Operator Name | Role | Phone | + + + + Unavailable | Unavailable | + + + + PROBLEMS +---------+ + + +--------+ + + | Type | Condition | ICD9-CM | [id number] | Onset | Condition | SNOMED | | | | Code | Code | Dates | Status | Code | +---------+ + + +--------+ + + | Problem | Cervicalgi | | M54.2 | | Active | 88905689 | | | a | | | | | | +---------+ + + +--------+ + + | Problem | Hypothyroi | | E03.9 | | Active | 79461544 | | | dism | | | | | | +---------+ + + +--------+ + + | Problem | 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 | | | Active | 209561411 | | | peroneal | | | | | | | | mononeurop | | | | | | | | athy | | | | | | +---------+ + + +--------+ + + | Problem | History of | Z87.39 | | | Active | 558366359 | | | | | | | | | | | fibromyalg | | | | | | | | ia | | | | | | +---------+ + + +--------+ + + | Problem | Anxiety | F41.8 | | | Active | 561325806 | | | associated | | | | | | | | with | | | | | | | | depression | | | | | | +---------+ + + +--------+ + + | Problem | Postural | 729.90 | | | Active | 67852220 | | | imbalance | | | | | | +---------+ + + +--------+ + + | Problem | Tear of | M75.101 | | | Active | 7229454792 | | | right | | | | | 5733161 | | | rotator | | | [...] | 354.0 | | | Active | 43612341 | | | tunnel | | | | | | | | syndrome | | | | | | +---------+ + + +--------+ + + | Problem | Medication | T88.7XXA | | | Active | | | | reaction | | | | | | +---------+ + + +--------+ + + | Problem | Impingemen | 726.2 | | | Active | 5108827149 | | | t syndrome | | | | | 1024823 | | | of both | | | | | | | | shoulders | | | | | | +---------+ + + +--------+ + + | Problem | Other | | M47.12 | | Active | 55564284 | | | spondylosi | | | [...] | Z98.890 | | | Active | 800476245 | | | Holter | | | | | | | | monitoring | | | | | | +---------+ + + +--------+ + + | Problem | Alopecia | L65.9 | | | Active | 05739516 | +---------+ + + +--------+ + + | Problem | Nasal | | R09.81 | | Active | 02270779 | | | congestion | | | | | | +---------+ + + +--------+ + + | Problem | Other | | J30.2 | | Active | 769789028 | | | seasonal | | | | | | | | allergic | | | | | | | | rhinitis | | | | | | +---------+ + + +--------+ + + | Problem | PTSD | | F43.10 | | Active | 17817632 | | | (post-trau | | | | | | | | matic | | | | | | | | stress | | | | | | | | disorder) | | | | | | +---------+ + + +--------+ + + | Problem | GERD | | K21.9 | | Active | 521793375 | | | (gastroeso | | | | | | | | phageal | | | | | | | | reflux | | | | | | | | disease) | | | | | | +---------+ + + +--------+ + + | Problem | Asthma | | J45.909 | | Active | 406935939 | +---------+ + + +--------+ + + | Problem | H/O | Z98.890 | | | Active | 306229082 | | | cervical | | | | | | | | spine | | | | | | | | surgery | | | | | | +---------+ + + +--------+ + + | 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 | 76359069 | | | anomaly | | | | | | +---------+ + + +--------+ + + | Problem | Personal | | Z87.898 | | Active | 161456647 | | | history of | | | | | | | | other | | | | | | | | specified | | | | | | | | conditions | | | | | | +---------+ + + +--------+ + + | Problem | Syncope | R55 | | | Active | 995377339 | +---------+ + + +--------+ + + | Problem | Displaceme | M51.27 | | | Active | 26895905 | | | nt of | | [...] | M47.816 | | | Active | 46503221 | | | s of | | | | | | | | lumbar | | | | | | | | joint | | | | | | +---------+ + + +--------+ + + | Problem | Sprain of | S93.419A | | | Active | 78719489 | | | calcaneofi | | | [...] | M54.17 | | | Active | 9102023 | | | l | | | | | | | | radiculopa | | | | | | | | thy due to | | | | | | | | trauma | | | | | | +---------+ + + +--------+ + + | Problem | Postural | R29.3 | | | Active | 46564555 | | | imbalance | | | | | | +---------+ + + +--------+ + + | Problem | Rheumatoid | M06.079 | | | Active | 54032011 | | | arthritis | | | | | | | | involving | | | | | | | | ankle | | | | | | +---------+ + + +--------+ + + | 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 | | | Active | 868633795 | | | athy, | | | [...]
--- OUTSIDE RECORDS SUMMARY | ~2017-08-15 | XMS ---
Demographics + + + | Address | [address] | | | [place] [address] | + + + | Preferred Language | Unknown | + + + | Marital Status | Unknown | + + + | Confucianism Affiliation | Unknown | + + + | Race | Unknown | + + + | Ethnic Group | Unknown | + + + Author + + + | Author | [facility] | + + + | Organization | [facility] | + + + | Address | [address] | | | [place] [address] | + + + | Phone | [phone] | + + + Care Team Providers + + + + | Care Hot Mill Worker Name | Role | Phone | + + + + Unavailable | Unavailable | + + + + PROBLEMS +---------+ + + +--------+ + + | Type | Condition | ICD9-CM | [id number] | Onset | Condition | SNOMED | | | | Code | Code | Dates | Status | Code | +---------+ + + +--------+ + + | Problem | Postural | 729.90 | | | Active | 41805905 | | | imbalance | | | | | | +---------+ + + +--------+ + + | Problem | History of | Z87.39 | | | Active | 777562583 | | | | | | | | | | | fibromyalg | | | | | | | | ia | | | | | | +---------+ + + +--------+ + + | Problem | Impingemen | 726.2 | | | Active | 8977839430 | | | t syndrome | | | | | 2742991 | | | of both | | | | | | | | shoulders | | | | | | +---------+ + + +--------+ + + | Problem | Carpal | 354.0 | | | Active | 35854374 | | | tunnel | | | | | | | | syndrome | | | | | | +---------+ + + +--------+ + + | Problem | Asthma | | J45.909 | | Active | 481575303 | +---------+ + + +--------+ + + | Problem | GERD | | K21.9 | | Active | 955716266 | | | (gastroeso | | | | | | | | phageal | | | | | | | | reflux | | | | | | | | disease) | | | | | | +---------+ + + +--------+ + + | Problem | PTSD | | F43.10 | | Active | 76512525 | | | (post-trau | | | | | | | | matic | | | | | | | | stress | | | | | | | | disorder) | | | | | | +---------+ + + +--------+ + + | Problem | Sprain of | S93.419A | | | Active | 74946725 | | | calcaneofi | | | [...] | | J30.2 | | Active | 019908617 | | | seasonal | | | | | | | | allergic | | | | | | | | rhinitis | | | | | | +---------+ + + +--------+ + + | Problem | Displaceme | M51.27 | | | Active | 53896806 | | | nt of | | [...] | S09.93XA | | | Active | 65498454 | | | injury | | | | | | +---------+ + + +--------+ + + | Problem | Spondylosi | M47.816 | | | Active | 49906980 | | | s of | | | | | | | | lumbar | | | | | | | | joint | | | | | | +---------+ + + +--------+ + + | 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 | | | | | | | | III) | | | | | | +---------+ + + +--------+ + + | Problem | Skin | L98.9 | | | Active | 07756025 | | | lesion | | | | | | +---------+ + + +--------+ + + | Problem | Change in | L81.9 | | | Active | 28332327 | | | mole | | | | | | +---------+ + + +--------+ + + | Problem | Encounter | Z71.89 | | | Active | 228799819 | | | for | | | | | | | | medication | | | | | | | | review | | | | | | | | and | | | | | | | | counseling | | | | | | +---------+ + + +--------+ + + | Problem | Elevated | R68.89 | | | Active | 538256774 | | | laboratory | | | | | | | | test | | | | | | | | result | | | | | | +---------+ + + +--------+ + + | Problem | Lumbosacra | M54.17 | | | Active | 3206434 | | | l | | | | | | | | radiculopa | | | | | | | | thy due to | | | | | | | | trauma | | | | | | +---------+ + + +--------+ + + | 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 | | | Active | 864321663 | | | athy, | | | | | | | | peripheral | | | | | | | | | | | | | | | | sensorimot | | | | | | | | or axonal | | | | | | +---------+ + + +--------+ + + | Problem | Rheumatoid | M06.079 | | | Active | 15044080 | | | arthritis | | | | | | | | involving | | | | | | | | ankle | | | | | | +---------+ + + +--------+ + + | Problem | Hyperglyce | | R73.9 | | Active | 46358508 | | | emerald | | | | | | +---------+ + + +--------+ + + | Problem | Hypertensi | | I10 | | Active | 84300254 | | | on | | | | | | +---------+ + + +--------+ + + | Problem | History of | Z87.39 | | | Active | 339506864 | | | | | | | | | | | rheumatoid | | | | | | | | arthritis | | | | | | +---------+ + + +--------+ + + | Problem | Fatigue | | R53.83 | | Active | 12419099 | +---------+ + + +--------+ + + | Problem | Hypothyroi | | E03.9 | | Active | 88155410 | | | dism | | | | | | +---------+ + + +--------+ + + | Problem | Eustachian | H69.80 | | | Active | 57853704 | | | tube | | | | | | | | dysfunctio | | | | | | | | n | | | | | | +---------+ + + +--------+ + + | Problem | 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 | | | Active | 020154916 | | | peroneal | | | | | | | | mononeurop | | | | | | | | athy | | | | | | +---------+ + + +--------+ + + | Problem | History of | Z98.890 | | | Active | 929881561 | | | Holter | | | | | | | | monitoring | | | | | | +---------+ + + +--------+ + + | Problem | Tear of | M75.101 | | | Active | 5240782657 | | | right | | | | | 8538633 | | | rotator | | | [...] | | M54.2 | | Active | 19311597 | | | a | | | | | | +---------+ + + +--------+ + + | Problem | Other | | M47.12 | | Active | 06412201 | | | spondylosi | | | [...] | R55 | | | Active | 787887595 | +---------+ + + +--------+ + + | Problem | Personal | | Z87.898 | | Active | 302998324 | | | history of | | | | | | | | other | | | | | | | | specified | | | | | | | | conditions | | | | | | +---------+ + + +--------+ + + | 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 | 01226059 | | | anomaly | | | | | | +---------+ + + +--------+ + + | Problem | H/O | Z98.890 | | | Active | 776577911 | | | cervical | | | [...] + + + | Pending Test | Aerobe ID + Suscept | + + + VITAL SIGNS + + + + | Height | 69 in | 2017-06-17 | + + + + | Weight | 239.0 lbs | 2017-06-17 | + + + + | BMI | 35.29 kg/m2 | 2017-06-17 | + + + + | Heart Rate | 78 /min | 2017-06-17 | + + + + | Blood pressure systolic | 119 mm Hg | 2017-06-17 | + + + + | Blood pressure diastolic | 67 mm Hg | 2017-06-17 | + + + + MEDICATIONS + [...] +--------+ RESULTS No Results PROCEDURES + + +--------+ + | Procedure | Date Ordered | Result | Body Site | + + +--------+ + | [facility] MED/CURRENT | Jun 17, 2017 | | | | MED MERGE | | | | + + +--------+ + | DOC MEDS VERIFIED | Jun 17, 2017 | | | | W/PT OR RE | | | | + + +--------+ + IMMUNIZATIONS No Known Immunizations MEDICAL (GENERAL) HISTORY [...]
--- OUTSIDE RECORDS SUMMARY | ~2017-08-15 | XMS ---
Demographics + + + | Address | [address] | | | [place] [address] | + + + | Preferred Language | Unknown | + + + | Marital Status | Unknown | + + + | Confucianist Affiliation | Unknown | + + + | Race | Unknown | + + + | Ethnic Group | Unknown | + + + Author + + + | Author | [facility] | + + + | Organization | [facility] | + + + | Address | [address] | | | [place] [address] | + + + | Phone | | + + + Care Team Providers + + + + | Care Manager Union Name | Role | Phone | + + + + Unavailable | Unavailable | + + + + PROBLEMS +---------+ + + +--------+ + + | Type | Condition | ICD9-CM | SJC92-BD | Onset | Condition | SNOMED | | | | Code | Code | Dates | Status | Code | +---------+ + + +--------+ + + | Problem | Postural | 729.90 | | | Active | 64491590 | | | imbalance | | | | | | +---------+ + + +--------+ + + | Problem | History of | Z87.39 | | | Active | [id number] | | | | | | | | | | | fibromyalg | | | | | | | | ia | | | | | | +---------+ + + +--------+ + + | Problem | Impingemen | 726.2 | | | Active | [id number] | | | t syndrome | | | | | [id number] | | | of both | | | | | | | | shoulders | | | | | | +---------+ + + +--------+ + + | Problem | Carpal | 354.0 | | | Active | 78433317 | | | tunnel | | | | | | | | syndrome | | | | | | +---------+ + + +--------+ + + | Problem | Asthma | | J45.909 | | Active | 725546726 | +---------+ + + +--------+ + + | Problem | GERD | | K21.9 | | Active | 699233620 | | | (gastroeso | | | | | | | | phageal | | | | | | | | reflux | | | | | | | | disease) | | | | | | +---------+ + + +--------+ + + | Problem | PTSD | | F43.10 | | Active | 26482030 | | | (post-trau | | | | | | | | matic | | | | | | | | stress | | | | | | | | disorder) | | | | | | +---------+ + + +--------+ + + | Problem | Sprain of | S93.419A | | | Active | 09586422 | | | calcaneofi | | | [...] | | J30.2 | | Active | 267158730 | | | seasonal | | | | | | | | allergic | | | | | | | | rhinitis | | | | | | +---------+ + + +--------+ + + | Problem | Displaceme | M51.27 | | | Active | 41433165 | | | nt of | | [...] | S09.93XA | | | Active | 68981471 | | | injury | | | | | | +---------+ + + +--------+ + + | Problem | Spondylosi | M47.816 | | | Active | 92793004 | | | s of | | | | | | | | lumbar | | | | | | | | joint | | | | | | +---------+ + + +--------+ + + | 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 | | | Active | 71565135 | | | (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 | | | | | | | | elial | | | | | | | | neoplasia | | | | | | | | III) | | | | | | +---------+ + + +--------+ + + | Problem | Skin | L98.9 | | | Active | 01736594 | | | lesion | | | | | | +---------+ + + +--------+ + + | Problem | Change in | L81.9 | | | Active | 29259638 | | | mole | | | | | | +---------+ + + +--------+ + + | Problem | Encounter | Z71.89 | | | Active | 585971623 | | | for | | | | | | | | medication | | | | | | | | review | | | | | | | | and | | | | | | | | counseling | | | | | | +---------+ + + +--------+ + + | Problem | Elevated | R68.89 | | | Active | [id number] | | | laboratory | | | | | | | | test | | | | | | | | result | | | | | | +---------+ + + +--------+ + + | Problem | Lumbosacra | M54.17 | | | Active | 6414625 | | | l | | | | | | | | radiculopa | | | | | | | | thy due to | | | | | | | | trauma | | | | | | +---------+ + + +--------+ + + | 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 | | | Active | 444367984 | | | athy, | | | | | | | | peripheral | | | | | | | | | | | | | | | | sensorimot | | | | | | | | or axonal | | | | | | +---------+ + + +--------+ + + | Problem | Rheumatoid | M06.079 | | | Active | 26473139 | | | arthritis | | | | | | | | involving | | | | | | | | ankle | | | | | | +---------+ + + +--------+ + + | Problem | Hyperglyce | | R73.9 | | Active | 96450225 | | | emerald | | | | | | +---------+ + + +--------+ + + | Problem | Hypertensi | | I10 | | Active | 90631558 | | | on | | | | | | +---------+ + + +--------+ + + | Problem | History of | Z87.39 | | | Active | 748817176 | | | | | | | | | | | rheumatoid | | | | | | | | arthritis | | | | | | +---------+ + + +--------+ + + | Problem | Fatigue | | R53.83 | | Active | 89545819 | +---------+ + + +--------+ + + | Problem | Hypothyroi | | E03.9 | | Active | 44645305 | | | dism | | | | | | +---------+ + + +--------+ + + | Problem | Eustachian | H69.80 | | | Active | 95766977 | | | tube | | | | | | | | dysfunctio | | | | | | | | n | | | | | | +---------+ + + +--------+ + + | Problem | 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 | | | Active | 330952569 | | | peroneal | | | | | | | | mononeurop | | | | | | | | athy | | | | | | +---------+ + + +--------+ + + | Problem | History of | Z98.890 | | | Active | 977129902 | | | Holter | | | | | | | | monitoring | | | | | | +---------+ + + +--------+ + + | Problem | Tear of | M75.101 | | | Active | [id number] | | | right | | | | | 0592027 | | | rotator | | | [...] | | M54.2 | | Active | 46340554 | | | a | | | | | | +---------+ + + +--------+ + + | Problem | 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
[~2017-08-15 09:59] MED LIST: AMOXICILLIN500 MG PO; ANTIVERT25 MG PO; BENADRYL25 MG PO; CEPHALEXIN500 MG PO; CITRACAL + D C1 EACH PO; DULOXETINE HCL30 MG PO; FLUCONAZOLE100 MG PO; FUROSEMIDE20 MG PO; IBUPROFEN800 MG PO; L-LYSINE500 M1 PO; LEVOTHYROXINE25 MCG PO; LIDOCAINE HCL100 ML MT; METAXALONE800 MG PO; MULTIVITAMINS1 EAC7 PO; PREDNISONE20 MG PO; PRILOSEC OTC20 MG PO; RANITIDINE HCL150 MG PO; SUDAFED 12 HOU120 MG PO; TYLENOL EXTRA500 MG PO; VITAMIN C500 M1 PO; VITAMIN D35000 UNI1 PO; VIVELLE-DOT1 EAC1 TD; WELLBUTRIN SR150 MG PO; XOPENEX HFA15 GM IH
[2017-08-15] MEDS ORDERED: PREDNISONE20 MG PO (10:33)
== END 2017-08-15 10:55 | disposition home or self-care (01) ==
LOC: ED 09:59
DX: H92.03 Otalgia, bilateral (principal); J06.9 Acute upper respiratory infection, unspecified; J45.909 Unspecified asthma, uncomplicated; K21.9 Gastro-esophageal reflux disease without esophagitis; Z87.442 Personal history of urinary calculi; Z98.890 Other specified postprocedural states; Z90.49 Acquired absence of other specified parts of digestive tract; Z98.51 Tubal ligation status; Z90.710 Acquired absence of both cervix and uterus; Z90.89 Acquired absence of other organs; Z88.5 Allergy status to narcotic agent; Z88.1 Allergy status to other antibiotic agents; Z88.0 Allergy status to penicillin; Z88.8 Allergy status to other drugs, medicaments and biological substances
CPT/HCPCS: 99283; J7512

== ENCOUNTER 2017-08-30 14:52 | Emergency (ER) | payer OTHER ==
[~2017-08-30] VITALS: Ht 175.3 cm; Wt 104.3 kg
[2017-08-30] MEDS ORDERED: CIPRO500 MG PO (15:01)
[2017-08-30] MEDS ORDERED: ESTRADIOL1 EA10 TD (15:03)
[2017-08-30] MEDS ORDERED: FOLBIC RF TABL1 EACH PO (15:03)
--- OUTSIDE RECORDS SUMMARY | 2017-08-30 16:43 | XMS | Clinical Summary ---
Demographics + + + | Address | [address] | | | [place] [address] | + + + | Home Phone | | + + + | Preferred Language | Unknown | + + + | Marital Status | Single | + + + | Judaism Affiliation | Unknown | + + + | Race | White | + + + | Ethnic Group | Not or | + + + Author + + + | Author | [facility] | + + + | Organization | [facility] | + + + | Address | Unknown | + + + | Phone | Unavailable | + + + Support +------+ +---------+ + | Name | Relationship | Address | Phone | +------+ +---------+ + ECON | Unknown | | +------+ +---------+ + Care Team Providers + +------+-------+ | Care Fountain Manager Name | Role | Phone | + +------+-------+ | Esperanza Ellis | PP | tel | + +------+-------+ Source Comments [facility] is fully live on both [facility] and [facility] Allergies + + + + + + | Active Allergy | Reactions | Severity | Noted | Comments | | | | | Date | | + + + + + + | Amoxicillin | Anaphylaxis, Hives | High | 01/11/20 | | | | | | 17 | | + + + + + + | Codeine | Anaphylaxis | High | 05/22/20 | | | | | | 17 | | + + + + + + | Guaiacol | Anaphylaxis | High | 01/02/20 | | | | | | 17 | | + + + + + + | Hydrocodone | Anaphylaxis | High | 02/06/20 | | | | | | 16 | | + + + + + + | Hydrocodone-Acetamin | Anaphylaxis, Hives | High | 04/28/20 | | | ophen | | | 13 | | + + + + + + | Levomefolate Calcium | Anaphylaxis | High | 03/29/20 | | | | | | 17 | | + + + + + + | Meperidine | Anaphylaxis | High | 03/19/20 | | | | | | 16 | | + + + + + + | Opioids - Morphine | Anaphylaxis, Hives | High | 04/28/20 | | | Analogues | | | 13 | | + + + + + + | Oxycodone | Anaphylaxis, Hives | High | 04/28/20 | | | | | | 13 | | + + + + + + | Oxycodone-Acetaminop | Anaphylaxis | High | 02/06/20 | | | hen | | | 16 | | + + + + + + | Penicillin | Rash | | 05/22/20 | | | | | | 17 | | + + + + + + | Penicillin G | Rash | Low | 05/22/20 | | | | | | 17 | | + + + + + + | Propoxyphene | Anaphylaxis, Hives | High | 02/06/20 | | | | | | 16 | | + + + + + + | Tramadol | Anaphylaxis, Hives, | High | 02/06/20 | | | | Dyspnea | | 16 | | + + + + + + Current Medications + + +-------+---------+------+------+-------+ | Prescription | Sig. | Disp. | Refills | Star | End | Statu | | | | | | t | Date | s | | | | | | Date | | | + + +-------+---------+------+------+-------+ | VENTOLIN HFA 90 | | | 0 | 06/2 | | Activ | | mcg/actuation | | | | 06/12 | | e | | inhalation HFA | | | | 17 | | | | aerosol inhaler | | | | | | | + + +-------+---------+------+------+-------+ | buPROPion SR 150 | | | 11 | 08/2 | | Activ | | mg oral tablet | | | | 2/20 | | e | | extended release 12 | | | | 17 | | | | hr | | | | | | | + + +-------+---------+------+------+-------+ | DULoxetine 30 mg | | | 11 | 08/2 | | Activ | | oral capsule,delayed | | | | 5/20 | | e | | release(DR/EC) | | | | 17 | | | + + +-------+---------+------+------+-------+ | estradiol 0.0375 | | | 7 | 08/2 | | Activ | | mg/24 hr transdermal | | | | 4/20 | | e | | patch semiweekly | | | | 17 | | | + + +-------+---------+------+------+-------+ | levalbuterol 45 | | | 11 | 08/0 | | Activ | | mcg/actuation | | | | 8/20 | | e | | inhalation HFA | | | | 17 | | | | aerosol inhaler | | | | | | | + + +-------+---------+------+------+-------+ | levothyroxine 25 | | | 3 | 08/2 | | Activ | | mcg oral tablet | | | | 20 | | e | | | | | | 17 | | | + + +-------+---------+------+------+-------+ | methocarbamol 750 | | | 3 | 08/1 | | Activ | | mg oral tablet | | | | 20 | | e | | | | | | 17 | | | + + +-------+---------+------+------+-------+ | ranitidine 150 mg | | | 11 | 08/0 | | Activ | | oral tablet | | | | 20 | | e | | | | | | 17 | | | + + +-------+---------+------+------+-------+ | acetaminophen 500 | Take by mouth. | | | | | Activ | | mg oral tablet | | | | | | e | + + +-------+---------+------+------+-------+ | ascorbic acid | Take by mouth. | | | | | Activ | | (vitamin C) 500 mg | | | | | | e | | oral tablet | | | | | | | + + +-------+---------+------+------+-------+ | Cholecalciferol | Take by mouth. | | | | | Activ | | (Vitamin D3) 5,000 | | | | | | e | | unit oral capsule | | | | | | | + + +-------+---------+------+------+-------+ | | by Does not apply | | | | | Activ | | Piddn-7-FMQ-EPA-Fish | route. | | | | | e | | Oil (FISH OIL) | | | | | | | | 1,000 mg (120 mg-180 | | | | | | | | mg) oral capsule | | | | | | | + + +-------+---------+------+------+-------+ | fluticasone 50 | | | 99 | 05/25 | | Activ | | mcg/actuation nasal | | | | 0/20 | | e | | spray,suspension | | | | 17 | | | + + +-------+---------+------+------+-------+ Active Problems Not on file Encounters +--------+---------+ + + + | Date | Type | Specialty | Care Team | Description | +--------+---------+ + + + | 07/11/ | Office | | Sarina Rodriguez | Multiple nevi | | 2016 | Visit | | MD Chris | (Primary Dx); Viral | | | | | | warts, unspecified | | | | | | type | +--------+---------+ + + + from Last 3 Months Family History + + +------+ + | Medical History | Relation | Name | Comments | + + +------+ + | Breast Cancer | Aunt | X3 | | + + +------+ + | Breast Cancer | Cousin | | | + + +------+ + | Breast Cancer | Maternal | | | | | Grandmoth | | | | | er | | | + + +------+ + | Diabetes | Mother | | | + + +------+ + | Heart Attack | Paternal | | | | | Grandfath | | | | | er | | | + + +------+ + | Hypertension | Paternal | | | | | Grandmoth | | | | | er | | | + + +------+ + | Stroke | Paternal | | | | | Grandmoth | | | | | er | | | + + +------+ + + +------+--------+ + | Relation | Name | Status | Comments | + +------+--------+ + | Aunt | X3 | Alive | | + +------+--------+ + | Cousin | | | | + +------+--------+ + | Maternal Grandmother | | | | + +------+--------+ + | Mother | | | | + +------+--------+ + | Paternal Grandfather | | | | + +------+--------+ + | Paternal Grandmother | | | | + +------+--------+ + Social History + +-------+ +--------+------+ | Tobacco Use | Types | Packs/Day | Years | Date | | | | | Used | | + +-------+ +--------+------+ | Never Smoker | | | | | + +-------+ +--------+------+ + +---+---+---+ | Smokeless Tobacco: | | | | | Never Used | | | | + +---+---+---+ + + + | Sex Assigned at | Date Recorded | | | | + + + | Not on file | | + + + Last Filed Vital Signs + + + + | Vital Sign | Reading | Time Taken | + + + + | Blood Pressure | - | - | + + + + | Pulse | - | - | + + + + | Temperature | - | - | + + + + | Respiratory Rate | - | - | + + + + | Oxygen Saturation | - | - | + + + + | Inhaled Oxygen | - | - | | Concentration | | | + + + + | Weight | 106.6 kg (235 lb) | 07/11/2017 3:18 PM PDT | + + + + | Height | 172.7 cm (5' 8") | 07/11/2017 3:18 PM PDT | + + + + | Body Mass Index | 35.73 | 07/11/2017 3:18 PM PDT | + + + + Plan of Treatment + + + + + | Health Maintenance | Due Date | Last Done | Comments | + + + + + | PRECONCEPTION/CONTRA | | | | | CEPTION COUNSELING | 2 | | | + + + + + | INFLUENZA VACCINE | | | | | (FLU SHOT) | 7 | | | + + + + + Results Not on filefrom Last 3 Months
[2017-08-30] MEDS ORDERED: [UNRECOGNIZED DRUG - OTHER] OPTH (16:48)
== END 2017-08-30 17:05 | disposition home or self-care (01) ==
LOC: ED 14:52
DX: H57.8 Other specified disorders of eye and adnexa (principal); Z79.899 Other long term (current) drug therapy; Z87.442 Personal history of urinary calculi; Z90.710 Acquired absence of both cervix and uterus; Z98.51 Tubal ligation status; Z88.5 Allergy status to narcotic agent; Z88.8 Allergy status to other drugs, medicaments and biological substances; Z88.1 Allergy status to other antibiotic agents
CPT/HCPCS: 99283